=== PATIENT | female | born 1935 | race Caucasian/White ===

== ENCOUNTER 2020-06-11 10:37 | Outpatient (REF) | payer MEDICARE, MEDICAID, SELFPAY ==
[2020-06-11 14:08] LABS: Hematocrit 43.8 % (37-47); Hemoglobin 13.9 g/dl (12.0-16.0); Mean Corpuscular HGB Conc 31.7 g/dl (31.0-35.0); Mean Corpuscular Hemoglobin 28.9 pg (27.0-33.0); Mean Corpuscular Volume 91.1 fL (80-98); Mean Platelet Volume 10.5 fL (9.4-12.3); Platelet Count 246 X10*3/uL (160-400); Red Blood Count 4.81 X10*6/uL (4.20-5.50); Red Cell Distribution Width 13.6 % (11.0-16.0)
[2020-06-11 14:32] LABS: Alanine Aminotransferase 20 U/L (0-31); Albumin Level 4.4 g/dL (3.5-5.0); Alkaline Phosphatase 83 U/L (39-117); Anion Gap 13 (12-20); Aspartate Amino Transferase 20 U/L (5-31); Bilirubin Total 1.2 mg/dL (0.0-1.0); Blood Urea Nitrogen 28 mg/dL (9-16); Calcium 9.4 mg/dL (8.4-10.2); Carbon Dioxide 27 mmol/L (22-29); Chloride 107 mmol/L (96-108); Cholesterol 188 mg/dL; Estimated Glomerular Filt Rate 39; Glucose Fasting 96 mg/dL (60-99); HDL Cholesterol 48 mg/dL; LDL Cholesterol Calculated 119 mg/dl; Potassium 5.2 mmol/l (3.3-5.1); Sodium 142 mmol/L (135-145); Total Protein 7.5 g/dL (6.5-8.0); Triglycerides 105 mg/dL
[2020-06-11 14:38] LABS: Glucose Urine UA NEG (NEG); Leukocyte Esterase Urine NEG (NEG); Nitrite Urine NEG (NEG); Specific Gravity - Urine 1.025 (1.005-1.025); Urine Blood NEG (NEG); Urine Ketones NEG (NEG); Urine Protein 1+ MG/DL (NEG-TRACE)
[2020-06-11 14:43] LABS: Appearance Urine CLEAR; Color Urine YELLOW
[2020-06-11 14:51] LABS: TSH reflex Free T4 3.77 mIU/mL (0.32-4.0)
[2020-06-11 15:09] LABS: Bacteria Urine 1+ /LPF; Mucus Urine 1+ /LPF; RBC Urine 0 /HPF (0); Squamous Epithelial Cell Urine 2+ /LPF; WBC Urine 0-2 /HPF (0-4)
== END 2020-06-11 10:38 | disposition home or self-care (01) ==
LOC: HO.HMGCLDS 10:37
PROVIDERS: PCP Internal Medicine; Visit Provider Internal Medicine
DX: I12.9 Hypertensive chronic kidney disease with stage 1 through stage 4 chronic kidney disease, or unspecified chronic kidney disease (principal); N18.30 Chronic kidney disease, stage 3 unspecified; E78.5 Hyperlipidemia, unspecified
CPT/HCPCS: 36415; 80053; 80061; 81001; 84443; 85027

== ENCOUNTER 2020-06-24 12:13 | Outpatient (REF) | payer MEDICARE, MEDICAID, SELFPAY ==
[2020-06-24 14:21] LABS: Anion Gap 15 (12-20); Blood Urea Nitrogen 26 mg/dL (9-16); Carbon Dioxide 23 mmol/L (22-29); Chloride 108 mmol/L (96-108); Estimated Glomerular Filt Rate 39; Glucose Random 129 mg/dL (60-115); Potassium 4.4 mmol/L (3.3-5.1); Sodium 142 mmol/L (135-145)
== END 2020-06-24 12:14 | disposition home or self-care (01) ==
LOC: HO.HMGCLDS 12:13
PROVIDERS: PCP Internal Medicine; Visit Provider Internal Medicine
DX: I10 Essential (primary) hypertension (principal)
CPT/HCPCS: 36415; 80048

== ENCOUNTER 2020-10-22 08:09 | Outpatient (REF) | payer MEDICARE, MEDICAID, SELFPAY ==
[2020-10-22 12:23] LABS: Alanine Aminotransferase 17 U/L (0-31); Albumin Level 4.4 g/dL (3.5-5.0); Alkaline Phosphatase 89 U/L (39-117); Anion Gap 15 (12-20); Aspartate Amino Transferase 20 U/L (5-31); Bilirubin Total 1.3 mg/dL (0.0-1.0); Blood Urea Nitrogen 24 mg/dL (9-16); Calcium 9.2 mg/dL (8.4-10.2); Carbon Dioxide 22 mmol/L (22-29); Chloride 106 mmol/L (96-108); Cholesterol 175 mg/dL; Estimated Glomerular Filt Rate 43; Glucose Fasting 99 mg/dL (60-99); HDL Cholesterol 49 mg/dL; LDL Cholesterol Calculated 103 mg/dl; Potassium 4.4 mmol/L (3.3-5.1); Sodium 139 mmol/L (135-145); Total Protein 7.8 g/dL (6.5-8.0); Triglycerides 118 mg/dL
[2020-10-22 12:31] LABS: Estimated Average Glucose 126 mg/dL
[2020-10-22 12:36] LABS: Microalbum/Creatinine Ratio Ur 177.2 ug/mg cr
== END 2020-10-22 08:10 | disposition home or self-care (01) ==
LOC: HO.HMGCLDS 08:09
PROVIDERS: PCP Internal Medicine; Visit Provider Internal Medicine
DX: I10 Essential (primary) hypertension (principal); R73.9 Hyperglycemia, unspecified
CPT/HCPCS: 36415; 80053; 80061; 82043; 83036; 84443

== ENCOUNTER 2021-06-26 10:33 | Outpatient (REF) | payer MEDICARE, MEDICAID, SELFPAY ==
[2021-06-26 14:08] LABS: Hematocrit 42.4 % (37.0-47.0); Hemoglobin 13.5 g/dl (12.0-16.0); Mean Corpuscular HGB Conc 31.8 g/dl (31.0-35.0); Mean Corpuscular Hemoglobin 28.8 pg (27.0-33.0); Mean Corpuscular Volume 90.4 fL (80.0-98.0); Platelet Count 233 X10*3/uL (160-400); Red Blood Count 4.69 X10*6/uL (4.20-5.50); Red Cell Distribution Width 13.1 % (11.0-16.0); White Blood Count 7.1 X10*3/uL (4.8-10.8)
[2021-06-26 14:18] LABS: Estimated Average Glucose 128 mg/dL; Hemoglobin A1C 151.8254 umol/L; Hemoglobin A1c % 6.1 %
[2021-06-26 14:34] LABS: B Type Natriuretic Peptide 193 pg/mL (<100); Troponin-I High Sensitivity 13.8 ng/L (<3.5-17.0)
[2021-06-26 14:41] LABS: Alanine Aminotransferase 21 U/L (0-31); Albumin Level 4.2 g/dL (3.5-5.0); Alkaline Phosphatase 92 U/L (39-117); Anion Gap 13 (12-20); Aspartate Amino Transferase 20 U/L (5-31); Bilirubin Total 1.5 mg/dL (0.0-1.0); Blood Urea Nitrogen 25 mg/dL (9-16); Calcium 9.5 mg/dL (8.4-10.2); Carbon Dioxide 28 mmol/L (22-29); Chloride 106 mmol/L (96-108); Cholesterol 196 mg/dL; Estimated Glomerular Filt Rate 37; Glucose Random 106 mg/dL (60-115); HDL Cholesterol 52 mg/dL; LDL Cholesterol Calculated 123 mg/dl; Potassium 4.5 mmol/L (3.3-5.1); Sodium 142 mmol/L (135-145); TSH reflex Free T4 3.86 uIU/mL (0.32-4.0); Total Protein 7.5 g/dL (6.5-8.0); Triglycerides 106 mg/dL
== END 2021-06-26 10:34 | disposition home or self-care (01) ==
LOC: HO.HMGCLDS 10:33
PROVIDERS: Visit Provider Internal Medicine
DX: I12.9 Hypertensive chronic kidney disease with stage 1 through stage 4 chronic kidney disease, or unspecified chronic kidney disease (principal); N18.30 Chronic kidney disease, stage 3 unspecified; R73.9 Hyperglycemia, unspecified; E78.5 Hyperlipidemia, unspecified; J44.9 Chronic obstructive pulmonary disease, unspecified
CPT/HCPCS: 36415; 80053; 80061; 83036; 83880; 84443; 84484; 85027

== ENCOUNTER → 2021-09-18 14:55 | Outpatient (REF) | payer MEDICARE, MEDICAID, SELFPAY ==
--- NOTE | 2021-09-18 15:01 | CA_ITS ---
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 The calculated ejection fraction is 63% by biplane method. - Evidence suggests grade II (moderate) diastolic dysfunction. - The left atrium is severely dilated. - There is mild calcification of the aortic valve. - There is mild mitral valve regurgitation. - There is mild tricuspid valve regurgitation. - Mild to moderate pulmonary hypertension is present. Findings Left Ventricle Normal left ventricular cavity size. There is mildly increased left ventricular wall thickness. The left ventricular systolic function is normal. The calculated ejection fraction is 63% by biplane method. There is no evidence of regional wall motion abnormalities. E/E prime ratio is >15, consistent with elevated filling pressures. Evidence suggests grade II (moderate) diastolic dysfunction. Right Ventricle Normal right ventricular cavity size and systolic function. Atria The left atrium is severely dilated. The right atrium is normal in size. Aortic Valve There is mild calcification of the aortic valve. There is no aortic valve stenosis. There is no aortic valve regurgitation. Mitral Valve The mitral valve appears normal. There is mild mitral valve regurgitation. There is no mitral valve stenosis. Pulmonic Valve The pulmonic valve is likely normal. Tricuspid Valve Normal tricuspid valve structure. There is mild tricuspid valve regurgitation. The right ventricular systolic pressure is 50 mmHg. Mild to moderate pulmonary hypertension is present. Great Vessels The aortic annulus, sinuses of valsalva, sino tubular ridge, and asc aorta are normal in size. Venous The inferior vena cava is normal in size and collapses greater than 50% with inspiration. Pericardium/Pleural There is no evidence of pericardial effusion. Prior Study Comparison No prior study available for comparison. Measurements 2D Linear Measurements IVSd: 1.19 0.6-0.9/0.6-1.0 cm LVIDd: 5.17 3.9-5.3/4.2-5.9 cm LVIDd Index: 2.79 2.4-3.2/2.2-3.1 cm/m2 LVIDs: 3.15 2.0-3.6 cm LVPWd: 1.14 0.7-1.1 cm LA Diam: 4.60 2.7-3.8/3.0-4.0 cm LAIDs Index: 2.49 1.5-2.3 cm/m2 LV Mass: 295.03 67-162/88-224 g LV Mass Index: 159.48 43-95/49-115 g/m2 LVOT Diam: 2.00 3.0+(-)1.3 cm 2D Systolic Function EF 4C: 68.60 >55% EF 2C: 56.00 >55% EF BiP: 62.50 >55% Mitral Valve MV Pk E: 0.99 MV PK A: 0.77 MV Decel Time: 257.00 E/A: 1.30 E'Lateral: 6.42 E'Medial: 5.22 E/E' Med: 18.90 E/E' Lat: 15.30 PHT: 75.00 MVA PHT: 2.93 Decel [place]: 3.83 Aortic Valve AoV Pk Curtis: 1.45 AoV Mn Curtis: 0.99 AoV VTI: 0.33 AoV Pk Grad: 8.00 Aov Mn Grad: 5.00 JENNIFER Cont.VTI: 2.11 LVOT LVOT Pk Curtis: 0.95 LVOT Mn Curtis: 0.68 LVOT VTI: 0.22 LVOT Pk Grad: 4.00 LVOT Mn Grad: 2.00 LVOT Diam: 2.00 LVOT Area: 3.14 Diastolic Function MV Pk E: 0.99 MV Pk A: 0.77 E/A: 1.30 E'Medial: 5.22 E/E' Med: 18.90 E' Laterial: 6.42 E/E' Lat: 15.30 Right Ventricle TAPSE (mm): 23.50 TVS' Curtis: 12.60 Tricuspid Valve TR Pk Curtis: 3.43 TR Pk Grad: 47.00 RA Press: 3.00 RVSP: 50.00 Great Vessels Aorta Sinus of Valsalva: 3.17 2.0-3.[address] [place]: 3.08 1.7-3.4 cm Ao Asc: 3.50 2.1-3.4 cm Ao Arch: 2.60 Updated in Other Vendor System with Status of Final Ezio Weaver MD electronically signed on 09/19/2021 4:25:19 PM with status of Final
== END ==
LOC: HO.CARD 14:55
PROVIDERS: PCP Internal Medicine; Visit Provider Internal Medicine
DX: I50.9 Heart failure, unspecified (principal)
CPT/HCPCS: 93306

== ENCOUNTER 2021-11-27 14:51 | Outpatient (REF) | payer MEDICARE, MEDICAID, SELFPAY ==
[2021-11-27 16:39] LABS: MANUAL DIFF FLAG NO
[2021-11-27 16:44] LABS: Basophils Percent Auto 0.4 % (0-2); Eosinophils Absolute Auto 0.3 X10*3/uL (0.0-0.4); Hematocrit 39.4 % (37.0-47.0); Hemoglobin 12.6 g/dl (12.0-16.0); Imm Gran Abs Auto 0.02 X10*3/uL (0.00-0.03); Imm Gran Pct Auto 0.3 % (0.0-0.4); Lymphocytes Absolute Auto 1.6 X10*3/uL (1.2-4.9); Lymphocytes Percent Auto 20.8 % (20-40); Mean Corpuscular Hemoglobin 28.2 pg (27.0-33.0); Mean Corpuscular Volume 88.1 fL (80.0-98.0); Mean Platelet Volume 10.6 fL (9.4-12.3); Monocytes Absolute Auto 0.6 X10*3/uL (0.1-1.2); Monocytes Percent Auto 8.6 % (2-11); Neutrophils Absolute Auto 4.9 x10*3/uL (2.0-8.3); Neutrophils Percent Auto 65.9 % (45-73); Platelet Count 245 X10*3/uL (160-400); Red Blood Count 4.47 X10*6/uL (4.20-5.50); Red Cell Distribution Width 13.7 % (11.0-16.0); White Blood Count 7.4 X10*3/uL (4.8-10.8)
[2021-11-27 16:58] LABS: Alanine Aminotransferase 14 U/L (0-31); Albumin Level 4.1 g/dL (3.5-5.0); Alkaline Phosphatase 88 U/L (39-117); Anion Gap 12 (12-20); Aspartate Amino Transferase 21 U/L (5-31); Bilirubin Total 0.8 mg/dL (0.0-1.0); Blood Urea Nitrogen 22 mg/dL (9-16); Calcium 8.8 mg/dL (8.4-10.2); Carbon Dioxide 26 mmol/L (22-29); Chloride 107 mmol/L (96-108); Estimated Glomerular Filt Rate 45; Glucose Random 92 mg/dL (60-115); Potassium 4.3 mmol/L (3.3-5.1); Sodium 141 mmol/L (135-145); Total Protein 7.3 g/dL (6.5-8.0)
[2021-11-27 17:20] LABS: TSH reflex Free T4 3.55 uIU/mL (0.32-4.0)
[2021-11-27 17:22] LABS: B Type Natriuretic Peptide 340 pg/mL (<100)
== END 2021-11-27 14:52 | disposition home or self-care (01) ==
LOC: HO.HMGCLDS 14:51
PROVIDERS: PCP Internal Medicine; Visit Provider Internal Medicine
DX: I13.0 Hypertensive heart and chronic kidney disease with heart failure and stage 1 through stage 4 chronic kidney disease, or unspecified chronic kidney disease (principal); N18.30 Chronic kidney disease, stage 3 unspecified; I50.9 Heart failure, unspecified; R73.9 Hyperglycemia, unspecified
CPT/HCPCS: 36415; 80053; 83880; 84443; 85025

== ENCOUNTER 2022-08-14 14:38 | Outpatient (REF) | payer MEDICARE, MEDICAID, SELFPAY ==
[2022-08-14 16:51] LABS: MANUAL DIFF FLAG NO
[2022-08-14 16:52] LABS: Basophils Percent Auto 0.2 % (0-2); Eosinophils Absolute Auto 0.2 X10*3/uL (0.0-0.4); Hematocrit 36.6 % (37.0-47.0); Hemoglobin 11.6 g/dl (12.0-16.0); Imm Gran Abs Auto 0.02 X10*3/uL (0.00-0.03); Imm Gran Pct Auto 0.2 % (0.0-0.4); Lymphocytes Absolute Auto 1.2 X10*3/uL (1.2-4.9); Lymphocytes Percent Auto 14.6 % (20-40); Mean Corpuscular HGB Conc 31.7 g/dl (31.0-35.0); Mean Corpuscular Hemoglobin 27.8 pg (27.0-33.0); Mean Corpuscular Volume 87.8 fL (80.0-98.0); Mean Platelet Volume 10.5 fL (9.4-12.3); Monocytes Absolute Auto 0.7 X10*3/uL (0.1-1.2); Monocytes Percent Auto 8.2 % (2-11); Neutrophils Absolute Auto 6.1 x10*3/uL (2.0-8.3); Neutrophils Percent Auto 74.8 % (45-73); Platelet Count 305 X10*3/uL (160-400); Red Blood Count 4.17 X10*6/uL (4.20-5.50); Red Cell Distribution Width 13.8 % (11.0-16.0); White Blood Count 8.1 X10*3/uL (4.8-10.8)
[2022-08-14 18:25] LABS: B Type Natriuretic Peptide 375 pg/mL (<100)
[2022-08-14 18:26] LABS: Alanine Aminotransferase 14 U/L (0-31); Albumin Level 4.1 g/dL (3.5-5.0); Alkaline Phosphatase 74 U/L (39-117); Anion Gap 16 (12-20); Aspartate Amino Transferase 17 U/L (5-31); Bilirubin Total 1.1 mg/dL (0.0-1.0); Blood Urea Nitrogen 29 mg/dL (9-16); Calcium 9.2 mg/dL (8.4-10.2); Carbon Dioxide 26 mmol/L (22-29); Chloride 104 mmol/L (96-108); Estimated Glomerular Filt Rate 43; Glucose Random 104 mg/dL (60-115); Potassium 4.3 mmol/L (3.3-5.1); Sodium 142 mmol/L (135-145); Total Protein 7.1 g/dL (6.5-8.0)
== END 2022-08-14 14:39 | disposition home or self-care (01) ==
LOC: HO.HMGCLDS 14:38
PROVIDERS: PCP Internal Medicine; Visit Provider Internal Medicine
DX: I50.9 Heart failure, unspecified (principal); J44.9 Chronic obstructive pulmonary disease, unspecified; N18.30 Chronic kidney disease, stage 3 unspecified; R73.9 Hyperglycemia, unspecified
CPT/HCPCS: 36415; 80053; 83880; 85025

== ENCOUNTER 2022-10-15 15:12 | Outpatient (REF) | payer MEDICARE, MEDICAID, SELFPAY ==
--- NOTE | ~2022-10-15 | XR_ITS ---
EXAMINATION: XR CHEST CLINICAL INFORMATION: Pleural effusion COMPARISON: Previous chest x-ray August 2018 TECHNIQUE: 2 views of the chest were obtained. FINDINGS: The cardiac and mediastinal contours are stable. There are multiple calcifications that project over both upper lungs. Some of these project outside the chest in the right axilla and bilateral lower neck. This appears unchanged from previous exam. There is linear scarring or subsegmental atelectasis in the left midlung. There are increased markings in the right perihilar region questionable for infiltrate. There is no significant pleural effusion. There is a slight blunting of the posterior costophrenic angles and thickening of the fissures questionable for small pleural effusions. There is no pneumothorax. There are degenerative changes of the spine and shoulders. There is curvature of the lower thoracic spine to the left. XR/XR chest 2V IMPRESSION: No significant pleural effusion. There may be small bilateral pleural effusions. Question infiltrate in the right perihilar region. Stable appearance to extensive calcifications projecting over the upper lungs, some of which appear to be in the soft tissues.
[2022-10-15 16:40] LABS: MANUAL DIFF FLAG NO
[2022-10-15 16:44] LABS: Basophils Percent Auto 0.3 % (0-2); Eosinophils Absolute Auto 0.2 X10*3/uL (0.0-0.4); Hematocrit 33.1 % (37.0-47.0); Hemoglobin 10.2 g/dl (12.0-16.0); Imm Gran Abs Auto 0.02 X10*3/uL (0.00-0.03); Imm Gran Pct Auto 0.2 % (0.0-0.4); Lymphocytes Percent Auto 10.5 % (20-40); Mean Corpuscular HGB Conc 30.8 g/dl (31.0-35.0); Mean Corpuscular Hemoglobin 26.3 pg (27.0-33.0); Mean Corpuscular Volume 85.3 fL (80.0-98.0); Mean Platelet Volume 10.6 fL (9.4-12.3); Monocytes Absolute Auto 0.8 X10*3/uL (0.1-1.2); Monocytes Percent Auto 8.4 % (2-11); Neutrophils Absolute Auto 7.2 x10*3/uL (2.0-8.3); Neutrophils Percent Auto 78.6 % (45-73); Platelet Count 234 X10*3/uL (160-400); Red Blood Count 3.88 X10*6/uL (4.20-5.50); Red Cell Distribution Width 13.6 % (11.0-16.0); White Blood Count 9.1 X10*3/uL (4.8-10.8)
[2022-10-15 17:48] LABS: B Type Natriuretic Peptide 425 pg/mL (<100)
[2022-10-15 17:58] LABS: Alanine Aminotransferase 10 U/L (0-31); Albumin Level 4.2 g/dL (3.5-5.0); Alkaline Phosphatase 74 U/L (39-117); Anion Gap 16 (12-20); Aspartate Amino Transferase 15 U/L (5-31); Bilirubin Total 1.9 mg/dL (0.0-1.0); Blood Urea Nitrogen 38 mg/dL (9-16); Calcium 8.8 mg/dL (8.4-10.2); Carbon Dioxide 30 mmol/L (22-29); Chloride 102 mmol/L (96-108); Estimated Glomerular Filt Rate 33; Glucose Random 105 mg/dL (60-115); Potassium 3.7 mmol/L (3.3-5.1); Sodium 144 mmol/L (135-145); Total Protein 7.3 g/dL (6.5-8.0)
[2022-10-15 18:16] LABS: TSH reflex Free T4 3.51 uIU/mL (0.32-4.0)
== END 2022-10-15 15:13 | disposition home or self-care (01) ==
LOC: HO.HMGCX 15:12
PROVIDERS: PCP Internal Medicine; Visit Provider Internal Medicine
DX: I13.0 Hypertensive heart and chronic kidney disease with heart failure and stage 1 through stage 4 chronic kidney disease, or unspecified chronic kidney disease (principal); N18.30 Chronic kidney disease, stage 3 unspecified; I50.9 Heart failure, unspecified; J44.9 Chronic obstructive pulmonary disease, unspecified
CPT/HCPCS: 36415; 71046; 80053; 83880; 84443; 85025

== ENCOUNTER 2022-10-20 17:00 | Outpatient (REF) | payer MEDICARE, MEDICAID, SELFPAY ==
[2022-10-20 17:16] LABS: MANUAL DIFF FLAG NO
[2022-10-20 17:37] LABS: Basophils Percent Auto 0.3 % (0-2); Eosinophils Absolute Auto 0.2 X10*3/uL (0.0-0.4); Eosinophils Percent Auto 2.4 % (0-4); Hematocrit 32.5 % (37.0-47.0); Hemoglobin 9.8 g/dl (12.0-16.0); Imm Gran Abs Auto 0.02 X10*3/uL (0.00-0.03); Imm Gran Pct Auto 0.3 % (0.0-0.4); Lymphocytes Absolute Auto 0.9 X10*3/uL (1.2-4.9); Lymphocytes Percent Auto 15.1 % (20-40); Mean Corpuscular HGB Conc 30.2 g/dl (31.0-35.0); Mean Corpuscular Hemoglobin 25.7 pg (27.0-33.0); Mean Corpuscular Volume 85.1 fL (80.0-98.0); Mean Platelet Volume 10.1 fL (9.4-12.3); Monocytes Absolute Auto 0.6 X10*3/uL (0.1-1.2); Monocytes Percent Auto 9.6 % (2-11); Neutrophils Absolute Auto 4.5 x10*3/uL (2.0-8.3); Neutrophils Percent Auto 72.3 % (45-73); Platelet Count 232 X10*3/uL (160-400); Red Blood Count 3.82 X10*6/uL (4.20-5.50); Red Cell Distribution Width 13.8 % (11.0-16.0); White Blood Count 6.2 X10*3/uL (4.8-10.8)
[2022-10-20 18:06] LABS: B Type Natriuretic Peptide 499 pg/mL (<100)
[2022-10-20 18:33] LABS: Alanine Aminotransferase 13 U/L (0-31); Albumin Level 4.1 g/dL (3.5-5.0); Alkaline Phosphatase 69 U/L (39-117); Anion Gap 14 (12-20); Aspartate Amino Transferase 14 U/L (5-31); Bilirubin Total 1.7 mg/dL (0.0-1.0); Blood Urea Nitrogen 40 mg/dL (9-16); Carbon Dioxide 30 mmol/L (22-29); Chloride 101 mmol/L (96-108); Estimated Glomerular Filt Rate 35; Glucose Random 99 mg/dL (60-115); Iron 26 mcg/dL (30-160); Percent Iron Saturation 7 % (15-50); Potassium 3.7 mmol/L (3.3-5.1); Sodium 141 mmol/L (135-145); Total Iron Binding Capacity 387 mcg/dL (228-428); Unsaturated Iron Binding 361 ug/dL
[2022-10-20 19:04] LABS: Folate 13.8 ng/mL (> or = 4.0); TSH reflex Free T4 3.63 uIU/mL (0.32-4.0); Vitamin B12 383 pg/mL (200-900)
== END 2022-10-20 17:01 | disposition home or self-care (01) ==
LOC: HO.LAB 17:00
PROVIDERS: PCP Internal Medicine; Visit Provider Internal Medicine
DX: J44.9 Chronic obstructive pulmonary disease, unspecified (principal); I13.0 Hypertensive heart and chronic kidney disease with heart failure and stage 1 through stage 4 chronic kidney disease, or unspecified chronic kidney disease; I50.9 Heart failure, unspecified; N18.30 Chronic kidney disease, stage 3 unspecified; D63.1 Anemia in chronic kidney disease
CPT/HCPCS: 36415; 80053; 82607; 82746; 83540; 83880; 84443; 85025

== ENCOUNTER 2023-01-07 11:55 | Outpatient (AMB) | payer MEDICARE, MEDICAID, SELFPAY ==
--- NOTE | 2023-01-07 11:58 | A.OFFPC_ITS ---
Vital Signs 01/07/23 11:59 Height 5 ft 7 in Weight 176 lb BMI 27.6 BP 126/64 Blood Pressure Location Rt brachial Position Sitting Pulse 83 Pulse Source Pulse Oximeter Pulse Oximetry (%) 90 L Oxygen Delivery Method Nasal Cannula Intake Visit Reasons: Follow up complex Intake Note: Pt is here today for a follow up visit. Pt states that she has been having cough and wheezing. Allergies lisinopril Adverse Reaction (Severe, Verified 01/07/23 12:05) hyperkalemia Medication List - Last Reconciled 01/07/23 by Stormy Topete MD amlodipine 5 mg PO DAILY apixaban (Eliquis) 5 mg PO BID aspirin 81 mg PO DAILY budesonide-formoterol 80-4.5 mcg/actuation (Symbicort) 2 puffs inhalation BID carvedilol 25 mg PO BID doxycycline hyclate 100 mg PO BID empagliflozin (Jardiance) 10 mg PO DAILY famotidine 20 mg PO DAILY furosemide 40 mg PO BID hydralazine 25 mg PO BID levothyroxine 88 mcg PO DAILY Oxygen Home Use PORTABLE OXYGEN pravastatin 20 mg PO DAILY Tobacco use date assessed: 01/07/23 Dental Screening Dental Screen Date: 01/07/23 Did you have a dental visit in the last 12 months?: Yes Did you have a dental problem in the last 6 months where you did not have access to dental care?: No Was dental information given to patient?: Patient has dentist HPI Follow up complex HPI Details Patient presents for the follow-up of HF with preserved ejection fraction, COPD, chronic kidney disease stage 3, paroxysmal AFib. Patient reports congestion and upper chest tightness in the morning improves changing position to a sitting. Patient denies cough sputum production PND orthopnea. Patient has been taking 60 mg of furosemide occasionally increasing to 80 mg for daily weight increase more than 2 lb. [facility] Medical History Annual physical exam Chest pain CHF (congestive heart failure) CKD (chronic kidney disease), stage III COPD (chronic obstructive pulmonary disease) HTN (hypertension) Hyperglycemia Hyperlipidemia Hyperparathyroidism Hypothyroidism Impacted cerumen of both ears Lumbar radiculopathy Pancreatic cyst Renal mass Surgical History H/O colonoscopy No pertinent past surgical history Family History Father Unknown family medical history Mother Unknown family medical history Social History Housing: House Alcohol intake: never Patient Tobacco Use Status: Never used Tobacco e-Cigarette/Vaping Use: Never Used Current occupational status: retired Cognitive needs: No Hearing needs: No Vision needs: No Questionnaire Thrive Questionnaire Date Thrive assessed: 06/05/22 EDDIE-7 AMB Questionnaire EDDIE-7 Date EDDIE - 7 assessed: 06/05/22 Source: Developed by Drs. Madhu Monroy, Shyla Hill, Abner Vieyra and colleagues, with an educational ryan from [employer]. Review of Systems Const All systems reviewed & are unremarkable except as noted in HPI and below Reports no additional complaints Eyes Reports no additional complaints ENT Reports no additional complaints Card Reports no additional complaints Resp Reports no additional complaints Physical exam (Primary Care) Vital Signs: Last Vital Signs Pulse 83 01/07/23 11:59 BP 126/64 01/07/23 11:59 Pulse Ox 90 L 01/07/23 11:59 Oxygen Delivery Method Nasal Cannula 01/07/23 11:59 BMI result Body Mass Index 27.6 Tobacco/Smoking Status: Tobacco use Status Tobacco use date assessed 01/07/23 01/07/23 12:07 Patient Tobacco Use Status Never used Tobacco 01/07/23 12:07 e-Cigarette/Vaping Use Never Used 01/07/23 12:07 Thrive Assessment: Date of Thrive Assessment Date Thrive assessed 06/05/22 01/07/23 12:07 Const General: no acute distress Neck Neck: Yes supple Resp Effort & Inspection: able to speak in complete sentences Auscultation: crackles bilateral and diminished lung sounds Cardio Rhythm: regular rhythm Heart sounds: S1 normal heart sound present and S2 normal heart sound present Extrem Other: 3+ pitting edema bilaterally Assessment and Plan Assessment & Plan (1) Hypoxia: Code(s): R09.02 - Hypoxemia Plan: Continue supplemental O2 to keep O2 sat above 90 (2) CHF (congestive heart failure): Comment: Echo 05/14 [facility] nl EF, nl valves, repeat ECHO 10/13 moderate concentric left ventricle hypertrophy, right ventricular volume overload severe biatrial enlargement, mild to moderate MR, severe pulmonary hypertension Code(s): I50.9 - Heart failure, unspecified Plan: Check labs including BNP, increase furosemide to 40 mg twice a day continue Coreg, Jardiance and hydralazine. Decrease amlodipine to 5 mg because of borderline low blood pressure and lower extremity swelling. Patient will continue to monitor her weight daily and adding spironolactone will be considered if patient persists to be fluid overload (3) COPD (chronic obstructive pulmonary disease): Code(s): J44.9 - Chronic obstructive pulmonary disease, unspecified Plan: Restart Symbicort twice a day (4) CKD (chronic kidney disease), stage III: Comment: renal scarring of left kidney ? old TB, right 2 simple cysts US 3.1 cm and 2.2 cm 03/2019,MR 01/13 - R unchanged 3.2 cm, ill defined renal mass, f/u with urology at [facility] Code(s): N18.30 - Chronic kidney disease, stage 3 unspecified Plan: Monitor renal function Orders: Orders B Type Natriuretic Peptide Today D64.9 - Anemia, unspecified, I50.9 - Heart failure, unspecified, J44.9 - Chronic obstructive pulmonary disease, unspecified, N18.30 - Chronic kidney disease, stage 3 unspecified, R09.02 - Hypoxemia Comprehensive Met. Panel Today D64.9 - Anemia, unspecified, I50.9 - Heart failure, unspecified, J44.9 - Chronic obstructive pulmonary disease, unspecified, N18.30 - Chronic kidney disease, stage 3 unspecified, R09.02 - Hypoxemia Complete Blood Count Auto Diff Today D64.9 - Anemia, unspecified, I50.9 - Heart failure, unspecified, J44.9 - Chronic obstructive pulmonary disease, unspecified, N18.30 - Chronic kidney disease, stage 3 unspecified, R09.02 - Hypoxemia Hemoglobin A1c Today D64.9 - Anemia, unspecified, I50.9 - Heart failure, unspecified, J44.9 - Chronic obstructive pulmonary disease, unspecified, N18.30 - Chronic kidney disease, stage 3 unspecified, R09.02 - Hypoxemia Medications: New amlodipine 5 mg PO DAILY 90 tabs 0RF furosemide 40 mg PO BID 180 tabs 1RF Discontinued amlodipine Discontinued Reason: Doctor's Order 10 mg PO DAILY 90 tabs 3RF doxycycline hyclate Discontinued Reason: Doctor's Order 100 mg PO BID 14 tabs 0RF Coding Level of Care Code Est Pt Level 4 (41616) Diagnoses Hypoxia R09.02 CHF (congestive heart failure) I50.9 COPD (chronic obstructive pulmonary disease) J44.9 CKD (chronic kidney disease), stage III N18.30
[2023-01-07 11:59] VITALS: BP 126/64; PULSE 83; O2SAT 90; BMI 27.6
== END 2023-01-07 13:14 | disposition home or self-care (01) ==
LOC: HO.HMGC 11:55
PROVIDERS: PCP Internal Medicine; Visit Provider Internal Medicine
DX: R09.02 Hypoxemia (principal); I50.9 Heart failure, unspecified; J44.9 Chronic obstructive pulmonary disease, unspecified; N18.30 Chronic kidney disease, stage 3 unspecified
CPT/HCPCS: 99214

== ENCOUNTER 2023-01-07 12:38 | Outpatient (REF) | payer MEDICARE, MEDICAID, SELFPAY ==
[2023-01-07 16:18] LABS: MANUAL DIFF FLAG NO
[2023-01-07 16:29] LABS: Basophils Percent Auto 0.3 % (0-2); Eosinophils Absolute Auto 0.1 X10*3/uL (0.0-0.4); Eosinophils Percent Auto 1.9 % (0-4); Hematocrit 39.3 % (37.0-47.0); Hemoglobin 12.3 g/dl (12.0-16.0); Imm Gran Abs Auto 0.02 X10*3/uL (0.00-0.03); Imm Gran Pct Auto 0.3 % (0.0-0.4); Lymphocytes Absolute Auto 0.9 X10*3/uL (1.2-4.9); Lymphocytes Percent Auto 11.8 % (20-40); Mean Corpuscular HGB Conc 31.3 g/dl (31.0-35.0); Mean Corpuscular Volume 89.3 fL (80.0-98.0); Mean Platelet Volume 10.6 fL (9.4-12.3); Monocytes Absolute Auto 0.6 X10*3/uL (0.1-1.2); Monocytes Percent Auto 8.5 % (2-11); Neutrophils Absolute Auto 5.6 x10*3/uL (2.0-8.3); Neutrophils Percent Auto 77.2 % (45-73); Platelet Count 207 X10*3/uL (160-400); Red Cell Distribution Width 15.8 % (11.0-16.0); White Blood Count 7.3 X10*3/uL (4.8-10.8)
[2023-01-07 16:32] LABS: Estimated Average Glucose 123 mg/dL; Hemoglobin A1c % 5.9 %
[2023-01-07 16:41] LABS: Alanine Aminotransferase 14 U/L (0-31); Albumin Level 4.2 g/dL (3.5-5.0); Alkaline Phosphatase 72 U/L (39-117); Anion Gap 12 (12-20); Aspartate Amino Transferase 18 U/L (5-31); Bilirubin Total 1.9 mg/dL (0.0-1.0); Blood Urea Nitrogen 27 mg/dL (9-16); Calcium 9.1 mg/dL (8.4-10.2); Carbon Dioxide 33 mmol/L (22-29); Chloride 100 mmol/L (96-108); Estimated Glomerular Filt Rate 39; Glucose Random 93 mg/dL (60-115); Potassium 3.8 mmol/L (3.3-5.1); Sodium 141 mmol/L (135-145); Total Protein 7.6 g/dL (6.5-8.0)
[2023-01-07 16:45] LABS: B Type Natriuretic Peptide 349 pg/mL (<100)
== END 2023-01-07 12:39 | disposition home or self-care (01) ==
LOC: HO.HMGCLDS 12:38
PROVIDERS: PCP Internal Medicine; Visit Provider Internal Medicine
DX: D64.9 Anemia, unspecified (principal); I50.9 Heart failure, unspecified; N18.30 Chronic kidney disease, stage 3 unspecified; J44.9 Chronic obstructive pulmonary disease, unspecified; R09.02 Hypoxemia
CPT/HCPCS: 36415; 80053; 83036; 83880; 85025

== ENCOUNTER 2023-02-08 14:36 | Outpatient (AMB) | payer MEDICARE, MEDICAID, SELFPAY ==
--- NOTE | 2023-02-08 14:54 | MHC.OFFWIV ---
Intake Vital Signs 02/08/23 14:55 Height 5 ft 7 in Weight 174 lb 2 oz BMI 27.3 BP 130/80 Blood Pressure Location Rt brachial Position Sitting Pulse 72 Pulse Source Pulse Oximeter Temp 98.1 F Temp Source Temporal Artery Scan Pulse Oximetry (%) 94 Intake Visit Reasons: Est/ right pinky finger swelling Intake Note: pt is here for c/o right pinky swelling Patient Tobacco Use Status: Never used Tobacco Allergies lisinopril Adverse Reaction (Severe, Verified 02/08/23 15:35) hyperkalemia Medication List - Last Reconciled 02/08/23 by Woodrow Law MD amlodipine 5 mg PO DAILY apixaban (Eliquis) 5 mg PO BID aspirin 81 mg PO DAILY budesonide-formoterol 80-4.5 mcg/actuation (Symbicort) 2 puffs inhalation BID carvedilol 25 mg PO BID empagliflozin (Jardiance) 10 mg PO DAILY famotidine 20 mg PO DAILY furosemide 40 mg PO BID hydralazine 25 mg PO BID levothyroxine 88 mcg PO DAILY Oxygen Home Use PORTABLE OXYGEN pravastatin 20 mg PO DAILY HPI Est/ right pinky finger swelling HPI Details 87-year-old female presents to the office for a sick visit. Her daughter is translating. Patient is complaining of a painful and swollen pinky finger on her right hand. She has history of extensive osteoarthritis in the hand. She noticed discomfort in the finger which has worsened since. Does not recall any fall or injury. [facility] Medical History Annual physical exam Chest pain CHF (congestive heart failure) CKD (chronic kidney disease), stage III COPD (chronic obstructive pulmonary disease) HTN (hypertension) Hyperglycemia Hyperlipidemia Hyperparathyroidism Hypothyroidism Impacted cerumen of both ears Lumbar radiculopathy Pancreatic cyst Renal mass Surgical History H/O colonoscopy No pertinent past surgical history Family History Father Unknown family medical history Mother Unknown family medical history Social History Housing: House Alcohol intake: never Patient Tobacco Use Status: Never used Tobacco e-Cigarette/Vaping Use: Never Used Current occupational status: retired Cognitive needs: No Hearing needs: No Vision needs: No Physical Exam Vital Signs: Last Vital Signs Temp 98.1 F 02/08/23 14:55 Pulse 72 02/08/23 14:55 BP 130/80 02/08/23 14:55 Pulse Ox 94 02/08/23 14:55 BMI result Body Mass Index 27.3 Extrem Other: Right hand: Extensive osteoarthritis changes in the hand including Heberden's nodes. Fifth digit: Erythematous and swollen. Pain on flexion. Assessment & Plan Assessment & Plan (1) Osteoarthritis of right hand: Code(s): M19.041 - Primary osteoarthritis, right hand Qualifiers: Osteoarthritis type: primary Qualified Code(s): M19.041 - Primary osteoarthritis, right hand Plan: X-ray images personally reviewed by me. No fractures seen. Antibiotics called in. Patient was advised to use [id number] anti-inflammatories. Orders: Orders XR hand RT min 3V Today M19.041 - Primary osteoarthritis, right hand Coding Level of Care Code Est Pt Level 4 (22424) Diagnoses Primary osteoarthritis of right hand M19.041 Osteoarthritis type: primary
[2023-02-08 14:55] VITALS: BP 130/80; PULSE 72; TEMP 36.7; O2SAT 94; BMI 27.3
== END 2023-02-08 15:55 | disposition home or self-care (01) ==
PROVIDERS: PCP Internal Medicine; Visit Provider Internal Medicine
DX: M19.041 Primary osteoarthritis, right hand (principal)
CPT/HCPCS: 99214

== ENCOUNTER 2023-02-08 15:32 | Outpatient (REF) | payer MEDICARE, MEDICAID, SELFPAY ==
--- NOTE | ~2023-02-08 | XR_ITS ---
EXAMINATION: XR HAND, RIGHT CLINICAL INFORMATION: Primary osteoarthritis right hand. COMPARISON: None available. TECHNIQUE: PA, lateral, and oblique views of the right hand. FINDINGS: There is flexion deformities with periarticular spurring and loss of joint space DIP joints second through fifth digits consistent osteoarthritis. Similar findings are seen in the PIP joint first digit and first carpometacarpal joint space. There is mild diffuse osteopenia. No visible acute fracture, dislocation or subluxation seen. XR/XR hand RT min 3V IMPRESSION: Severe degenerative osteoarthritic changes right hand with flexion deformities DIP joints second through fifth digits.
== END 2023-02-08 15:33 | disposition home or self-care (01) ==
LOC: HO.HMGCLDS 15:32
PROVIDERS: PCP Internal Medicine; Visit Provider Internal Medicine
DX: M19.041 Primary osteoarthritis, right hand (principal)
CPT/HCPCS: 73130

== ENCOUNTER 2023-02-17 11:54 | Outpatient (AMB) | payer MEDICARE, MEDICAID, SELFPAY ==
--- NOTE | 2023-02-17 12:00 | A.OFFPC_ITS ---
Vital Signs 02/17/23 12:02 Height 5 ft 7 in Weight 177 lb BMI 27.7 BP 110/66 Blood Pressure Location Lt brachial Position Sitting Pulse 84 Pulse Source Pulse Oximeter Pulse Oximetry (%) 92 Oxygen Delivery Method Nasal Cannula Intake Visit Reasons: Follow up Intake Note: Pt is here today for a follow up visit. Allergies lisinopril Adverse Reaction (Severe, Verified 02/17/23 12:05) hyperkalemia Medication List - Last Reconciled 02/17/23 by Stormy Topete MD amlodipine 10 mg PO DAILY apixaban (Eliquis) 5 mg PO BID aspirin 81 mg PO DAILY budesonide-formoterol 80-4.5 mcg/actuation (Symbicort) 2 puffs inhalation BID carvedilol 25 mg PO BID empagliflozin (Jardiance) 10 mg PO DAILY famotidine 20 mg PO DAILY furosemide 40 mg PO BID hydralazine 25 mg PO BID levothyroxine 88 mcg PO DAILY Oxygen Home Use PORTABLE OXYGEN pravastatin 20 mg PO DAILY Tobacco use date assessed: 01/07/23 HPI Follow up HPI Details pt presents for f/u CHF, hypothyroid, HTN, CKD 3, stable on current medications. Patient had follow-up MRI of renal mass which has been unchanged and she will follow-up with urologist in 6 months. Cardiac MRI showed left ventricular ejection fraction 50% no significant segmental wall motion abnormalities and normal thickness of left ventricle. She has a follow-up appointment with transition social worker at [facility]. [facility] Medical History (Updated 02/17/23 @ 12:55 by Stormy Topete MD) CHF (congestive heart failure) Impacted cerumen of both ears Annual physical exam Hyperglycemia Chest pain Renal mass Hypothyroidism Pancreatic cyst Lumbar radiculopathy Hyperparathyroidism CKD (chronic kidney disease), stage III COPD (chronic obstructive pulmonary disease) Hyperlipidemia HTN (hypertension) Surgical History H/O colonoscopy No pertinent past surgical history Family History Father Unknown family medical history Mother Unknown family medical history Social History Housing: House Alcohol intake: never Patient Tobacco Use Status: Never used Tobacco e-Cigarette/Vaping Use: Never Used Current occupational status: retired Cognitive needs: No Hearing needs: No Vision needs: No Questionnaire Thrive Questionnaire Date Thrive assessed: 06/05/22 EDDIE-7 AMB Questionnaire EDDIE-7 Date EDDIE - 7 assessed: 06/05/22 Source: Developed by Drs. Madhu Monroy, Shyla Hill, Abner Vieyra and colleagues, with an educational ryan from [employer]. Review of Systems Const All systems reviewed & are unremarkable except as noted in HPI and below Reports no additional complaints Eyes Reports no additional complaints ENT Reports no additional complaints Card Reports no additional complaints Resp Reports no additional complaints GI Reports no additional complaints Reports no additional complaints Physical exam (Primary Care) Vital Signs: Last Vital Signs Pulse 84 02/17/23 12:02 BP 110/66 02/17/23 12:02 Pulse Ox 92 02/17/23 12:02 Oxygen Delivery Method Nasal Cannula 02/17/23 12:02 BMI result Body Mass Index 27.7 Tobacco/Smoking Status: Tobacco use Status Tobacco use date assessed 01/07/23 02/17/23 12:04 Patient Tobacco Use Status Never used Tobacco 02/17/23 12:04 e-Cigarette/Vaping Use Never Used 02/17/23 12:04 Thrive Assessment: Date of Thrive Assessment Date Thrive assessed 06/05/22 02/17/23 12:04 Const General: no acute distress HENMT Head: Yes normal to inspection Neck Neck: Yes supple Resp Effort & Inspection: normal respiratory effort Auscultation: diminished lung sounds Cardio Rhythm: regular rhythm Heart sounds: S1 normal heart sound present and S2 normal heart sound present GI Inspection: Yes normal to inspection Palpation (GI): Soft to palpation Percussion: Yes normal to percussion Auscultation: normal bowel sounds Extrem Other: 1+ pitting edema bilaterally Assessment and Plan Assessment & Plan (1) Pleural effusion: Code(s): J90 - Pleural effusion, not elsewhere classified Plan: Repeat chest X (2) CHF (congestive heart failure): Comment: ECHO 10/13 moderate concentric left ventricle hypertrophy, right ventricular volume overload, severe biatrial enlargement, mild to moderate MR, severe pulmonary hypertension. Heart MR LVEF 50%, LV thickness nl, no segmental wall motion abnormalities 02/13 Code(s): I50.9 - Heart failure, unspecified Plan: Continue current treatment follow-up with Cardiology (3) COPD (chronic obstructive pulmonary disease): Code(s): J44.9 - Chronic obstructive pulmonary disease, unspecified Plan: Continue Symbicort and supplemental O2 (4) CKD (chronic kidney disease), stage III: Comment: renal scarring of left kidney ? old TB, right 2 simple cysts US 3.1 cm and 2.2 cm 03/2019,MR 01/13 - R unchanged 3.2 cm, ill defined renal mass, f/u with urology at [facility] Code(s): N18.30 - Chronic kidney disease, stage 3 unspecified Plan: Monitor renal function and avoid NSAIDs (5) Hyperlipidemia: Code(s): E78.5 - Hyperlipidemia, unspecified Plan: Continue statin (6) HTN (hypertension): Code(s): I10 - Essential (primary) hypertension Plan: Continue current medications, follow-up in 2 months with a fasting labs before (7) GERD (gastroesophageal reflux disease): Code(s): K21.9 - Gastro-esophageal reflux disease without esophagitis (8) Calcified granuloma of lung: Comment: upper lobes bilateral Code(s): J84.10 - Pulmonary fibrosis, unspecified (9) Renal mass: Comment: MR 03/11 3.1 cm R renal mass, [facility] MR 06/15 3.2 cm R renal mass, 6 mth f/u with [facility] Code(s): N28.89 - Other specified disorders of kidney and ureter Orders: Orders Hemoglobin A1c 2 Months E78.5 - Hyperlipidemia, unspecified, I10 - Essential (primary) hypertension, I50.9 - Heart failure, unspecified, J44.9 - Chronic obstructive pulmonary disease, unspecified, J84.10 - Pulmonary fibrosis, unspecified, K21.9 - Gastro-esophageal reflux disease without esophagitis, N18.30 - Chronic kidney disease, stage 3 unspecified IRON PROFILE 2 Months E78.5 - Hyperlipidemia, unspecified, I10 - Essential (primary) hypertension, I50.9 - Heart failure, unspecified, J44.9 - Chronic obstructive pulmonary disease, unspecified, J84.10 - Pulmonary fibrosis, unspecified, K21.9 - Gastro-esophageal reflux disease without esophagitis, N18.30 - Chronic kidney disease, stage 3 unspecified XR chest 1V Today J90 - Pleural effusion, not elsewhere classified Comprehensive [place]. Panel Fast 2 Months E78.5 - Hyperlipidemia, unspecified, I10 - Essential (primary) hypertension, I50.9 - Heart failure, unspecified, J44.9 - Chronic obstructive pulmonary disease, unspecified, J84.10 - Pulmonary fibrosis, unspecified, K21.9 - Gastro-esophageal reflux disease without esophagitis, N18.30 - Chronic kidney disease, stage 3 unspecified B Type Natriuretic Peptide 2 Months E78.5 - Hyperlipidemia, unspecified, I10 - Essential (primary) hypertension, I50.9 - Heart failure, unspecified, J44.9 - Chronic obstructive pulmonary disease, unspecified, J84.10 - Pulmonary fibrosis, unspecified, K21.9 - Gastro-esophageal reflux disease without esophagitis, N18.30 - Chronic kidney disease, stage 3 unspecified Complete Blood Count Auto Diff 2 Months E78.5 - Hyperlipidemia, unspecified, I10 - Essential (primary) hypertension, I50.9 - Heart failure, unspecified, J44.9 - Chronic obstructive pulmonary disease, unspecified, J84.10 - Pulmonary fibrosis, unspecified, K21.9 - Gastro-esophageal reflux disease without esophagitis, N18.30 - Chronic kidney disease, stage 3 unspecified TSH reflex Free T4 2 Months E78.5 - Hyperlipidemia, unspecified, I10 - Essential (primary) hypertension, I50.9 - Heart failure, unspecified, J44.9 - Chronic obstructive pulmonary disease, unspecified, J84.10 - Pulmonary fibrosis, unspecified, K21.9 - Gastro-esophageal reflux disease without esophagitis, N18.30 - Chronic kidney disease, stage 3 unspecified Medications: New amlodipine take with 5 mg qd 2.5 mg PO DAILY 90 tabs 0RF Changed From amlodipine 5 mg PO DAILY 90 tabs 0RF To amlodipine 10 mg PO DAILY Coding Level of Care Code Est Pt Level 4 (26497) Diagnoses Pleural effusion J90 CHF (congestive heart failure) I50.9 COPD (chronic obstructive pulmonary disease) J44.9 CKD (chronic kidney disease), stage III N18.30 Hyperlipidemia E78.5 HTN (hypertension) I10 GERD (gastroesophageal reflux disease) K21.9 Calcified granuloma of lung J84.10 Renal mass N28.89
[2023-02-17 12:02] VITALS: BP 110/66; PULSE 84; O2SAT 92; BMI 27.7
== END 2023-02-17 12:57 | disposition home or self-care (01) ==
PROVIDERS: PCP Internal Medicine; Visit Provider Internal Medicine
DX: I50.9 Heart failure, unspecified (principal); J44.9 Chronic obstructive pulmonary disease, unspecified; N18.30 Chronic kidney disease, stage 3 unspecified; J84.10 Pulmonary fibrosis, unspecified; J90 Pleural effusion, not elsewhere classified; I00-I99 Diseases of the circulatory system; E78.5 Hyperlipidemia, unspecified; K21.9 Gastro-esophageal reflux disease without esophagitis; N28.89 Other specified disorders of kidney and ureter
CPT/HCPCS: 99214

== ENCOUNTER 2023-03-12 14:36 | Outpatient (REF) | payer MEDICARE, MEDICAID, SELFPAY ==
--- NOTE | ~2023-03-12 | XR_ITS ---
EXAMINATION: XR CHEST CLINICAL INFORMATION: Pleural effusion. COMPARISON: Chest radiograph 10/15/2022. TECHNIQUE: 2 views of the chest were obtained. FINDINGS: Stable significant prominence of the cardiomediastinal silhouette. Atherosclerotic disease of the aortic arch. Redemonstration of multifocal indeterminate calcifications, the majority projecting over the upper lungs and several outside of the lung field projecting over the soft tissues of the neck and right-sided chest wall. These are not significantly changed. No new focal airspace density, although evaluation is somewhat limited due to overlying calcifications. Unchanged predominantly central and bibasilar bronchial thickening. Similar mild blunting of the posterior costophrenic angles on the lateral view that could indicate trace effusion or pleural thickening. No pneumothorax. No acute osseous findings. Thoracic spondylosis. Right upper quadrant surgical clips. XR/XR chest 2V IMPRESSION: No significant change compared to 10/15/2022.
== END 2023-03-12 14:37 | disposition home or self-care (01) ==
LOC: HO.HMGCX 14:36
PROVIDERS: PCP Internal Medicine; Visit Provider Internal Medicine
DX: J90 Pleural effusion, not elsewhere classified (principal)
CPT/HCPCS: 71046

== ENCOUNTER 2023-06-10 13:30 | Outpatient (AMB) | payer MEDICARE, MEDICAID, SELFPAY ==
[2023-06-10 13:39] VITALS: BP 128/64; PULSE 74; O2SAT 92; BMI 26.6
--- NOTE | 2023-06-10 13:39 | A.OFFVIS_ITS ---
Intake Vital Signs 06/10/23 13:39 Height 5 ft 7 in Weight 170 lb BMI 26.6 BP 128/64 Blood Pressure Location Rt brachial Position Sitting Pulse 74 Pulse Source Pulse Oximeter Pulse Oximetry (%) 92 Oxygen Delivery Method Nasal Cannula Intake Visit Reasons: SWV G0439 Intake Note: Pt is here today for a AWV. tPt's daughter states that pt needs a refill on Amlodipine 10 mg as pt has been taking it for BP. Allergies lisinopril Adverse Reaction (Severe, Verified 06/10/23 13:39) hyperkalemia Medication List - Last Reconciled 06/10/23 by Stormy Topete MD amlodipine 10 mg (2 x 5 mg) PO DAILY apixaban (Eliquis) 5 mg PO BID aspirin 81 mg PO DAILY budesonide-formoterol 80-4.5 mcg/actuation (Symbicort) 2 puffs inhalation BID carvedilol 25 mg PO BID empagliflozin (Jardiance) 10 mg PO DAILY famotidine 20 mg PO DAILY furosemide 40 mg PO BID hydralazine 25 mg PO BID levothyroxine 88 mcg PO DAILY Oxygen Home Use PORTABLE OXYGEN pravastatin 20 mg PO DAILY HPI SWV G0439 HPI Details Patient presents for annual visit. 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 Initiated the conversation about Advanced Directives. Advanced Directives help? patients prepare for current and future decisions about their medical treatment? and place of care. Discussed with patient that it is a process where a patients? current condition and prognosis are reviewed, their wishes for information? rega rding their illness are elicited, and likely medical dilemmas are presented? and options discussed. The form can be amended as needed, reviewed yearly and? make changes as needed IPPE/AWV ? year old presents? for her ? Annual? Wellness Visit, initial visit.? Medical / Social History Reviewed? Past Medical History ?Yes? . ? [place]? of Care / Care Team list updated ?Yes . ? Surgical/Hospitalization? History ?Yes . ? Current Medications? (including OTC and supplements) ?Yes . ? Family History ?Yes? . ? Tobacco? Control form ?Yes . ? AUDIT-C (Alcohol use) form? ?Yes . ? Illicit drug use in Social? History ?Yes . ? Current diagnosis of? depression? ?No ? Appropriate PHQ2/PHQ9? completed ?Yes . ? Data entered by ?Medical? Director Of Procurement and reviewed by provider ? Fall Risk ? Fall? History? Have you had any falls with? injury in the past year? ?No . ? Have you had two or more? falls in the past year? ?No . ? Fall Risk Assessment: ?No? falls in the past year . ? HRA filled out by? the patient, reviewed by Provider and scanned. ? IPPE/AWV ? Balance? Romberg? ?Yes . ? Tandem? walk ?Yes . ? Walk and? Turn ?Yes . ? Rise from? sit to stand ?Yes . ?Vision? Corrective? lens ?Yes ? Vision? screen ? Up-to-date, has an appointment [] for vision? screening and glaucoma screening ?Hearing? Whisper? test ?pass .? Initiated the conversation about Advanced Directives. Advanced Directives help? patients prepare for current and future decisions about their medical treatment? and place of care. Discussed with patient that it is a process where a patients? current condition and prognosis are reviewed, their wishes for information? regarding their illness are elicited, and likely medical dilemmas are presented? and options discussed. The form can be amended as needed, reviewed yearly and? make changes as needed Written? Plan?Completed. See Patient? Documents. [facility] Medical History (Updated 02/17/23 @ 12:55 by Stormy Topete MD) CHF (congestive heart failure) Impacted cerumen of both ears Annual physical exam Hyperglycemia Chest pain Renal mass Hypothyroidism Pancreatic cyst Lumbar radiculopathy Hyperparathyroidism CKD (chronic kidney disease), stage III COPD (chronic obstructive pulmonary disease) Hyperlipidemia HTN (hypertension) Surgical History H/O colonoscopy No pertinent past surgical history Family History Father Unknown family medical history Mother Unknown family medical history Social History Housing: House Alcohol intake: never Patient Tobacco Use Status: Never used Tobacco e-Cigarette/Vaping Use: Never Used Current occupational status: retired Cognitive needs: No Hearing needs: No Vision needs: No Questionnaire Medicare Wellness Checkup What is your age?: 81 or older What gender do you identify with?: female During the past 4 weeks, how much have you been bothered by emotional problems such as feeling anxious, depressed, irritable, sad or downhearted, and blue?: slightly During the past 4 weeks, has your physical & emotional health limited your social activities with family, friends, neighbors, or groups?: slightly During the past 4 weeks, how much bodily pain have you generally had?: mild pain During the past 4 weeks, was someone available to help you if you needed & wanted help?: yes, as much as I wanted During the past 4 weeks, what was the hardest physical activity you could do for at least 2 minutes?: light Can you get to places out of walking distance without help? (For eg., can you travel alone on buses, taxis or drive your car?): Yes Can you go shopping for groceries or clothes without someone's help?: No Can you prepare your own meals?: Yes Can you do your housework without help?: Yes Because of any health problems, do you need the help of another person with your personal care needs such as eating, bathing, dressing or getting around the house?: No Can you handle your own money without help?: Yes During the past 4 weeks, how would you rate your health in general?: good During the past 4 weeks how have things been going for you?: pretty well Are you having difficulties driving your car?: not applicable, I don't use a car Do you always fasten your seat belt when you are in a car?: yes, usually During past 4 weeks, have you been bothered by the following: never: Sexual problems?, Teeth or denture problems? and Problems using the telephone?, seldom: Trouble eating well? and Tiredness or fatigue? and sometimes: Falling or dizzy when standing up Have you fallen 2 or more times in the past year?: No Are you afraid of falling?: No Are you a smoker?: no During the past 4 weeks, how many drinks of wine, beer, or other alcoholic beverages did you have?: no alcohol at all Do you exercise for about 20 minutes 3 or more times a week?: no, I usually do not exercise this much Have you been given information to help with the following?: yes: Hazards in your house that might hurt you? and yes: Keeping track of your medications? How often do you have trouble taking medicines the way you have been told to take them?: I always take medicine as prescribed How confident are you that you can control & manage most of your health problems?: somewhat confident What is your race?: White Mini Mental State Exam (MMSE) Orientation What is the (year) (season) (date) (day) (month)?: year, season, date, day and month Where are we (state) (county) (town or city) (hospital) (floor)?: state, county, town or city, hospital/clinic and floor Registration Name of 3 unrelated objects clearly and slowly, then ask patient to repeat all 3 of them. (1st repeat determines score. Make sure they can repeat all three): object 1, object 2 and object 3 Attention & Calculation (CHOOSE ONE) Spell WORLD backwards (DLROW): 5 letters Recall Ask patient to repeat the 3 items from question #3.: object 1, object 2 and object 3 Language Show patient a wristwatch & ask what it is. Repeat for pencil.: watch and pencil Ask the patient to repeat the phrase 'No ifs, ands, or buts' after you.: correct Print the sentence 'CLOSE YOUR EYES' on a piece. If patient actually closes eyes then score.: followed written direction Score Score: 25 Activity of Daily Living Bathing - sponge bath, tub bath or shower: receives no assistance (gets in/out by self, if usual bathing means Dressing - getting clothes from closets & drawers, including inner/outer garments & fasteners.: gets clothes & gets completely dressed without help Toileting - going to the 'toilet room' for urine/bowel elimination & cleaning self/arranging clothes: goes to toilet room, cleans self, arranges clothes without help Transfer: moves in & out of bed and chair without help (may use support object) Continence: controls urination/bowel movements completely by self Feeding: feeds self without help Total Score: 0 Information obtained from: patient Using telephone: independent Traveling: dependent Shopping: dependent Preparing meals: independent Housework: independent Taking medicine: independent Managing money: independent PHQ-9 Over the last 2 weeks, how often have you been bothered by any of the following problems? 1. Little interest or pleasure in doing things: several days 2. Feeling down, depressed, or hopeless: not at all 3. Trouble falling or staying asleep, or sleeping too much: several days 4. Feeling tired or having little energy: several days 5. Poor appetite or overeating: not at all 6. Feeling bad about yourself - or that you are a failure or have let yourself or your family down: not at all 7. Trouble concentrating on things, such as reading the newspaper or watching television: not at all 8. Moving or speaking so slowly that other people could have noticed. Or the opposite - being so fidgety or restless that you have been moving around a lot more than usual: not at all 9. Thoughts that you would be better off or of hurting yourself in some way: not at all Total score: 3 Depression Screening Interpretation: Negative Depression Screening Done: Yes Source: Developed by Drs. Madhu Monroy, Shyla Hill, Abner Vieyra and colleagues, with an educational ryan from [employer]. Review of Systems Const All systems reviewed & are unremarkable except as noted in HPI and below Reports no additional complaints Eyes Reports no additional complaints ENT Reports no additional complaints Card Reports no additional complaints Resp Reports no additional complaints GI Reports no additional complaints Reports no additional complaints Physical Exam Vital Signs: Last Vital Signs Pulse 74 06/10/23 13:39 BP 128/64 06/10/23 13:39 Pulse Ox 92 06/10/23 13:39 Oxygen Delivery Method Nasal Cannula 06/10/23 13:39 BMI result Body Mass Index 26.6 Const General: no acute distress HEENT Head: Yes normal to inspection Ears: hearing grossly normal bilaterally Resp Effort & Inspection: normal respiratory effort Auscultation: diminished lung sounds Cardio Rhythm: abnormal rhythm irregularly irregular Heart sounds: S1 normal heart sound present and S2 normal heart sound present GI Inspection: Yes normal to inspection Palpation (GI): Soft to palpation Percussion: Yes normal to percussion Auscultation: normal bowel sounds Extrem Other: 2+ pitting edema bilaterally Assessment & Plan Assessment & Plan (1) CHF (congestive heart failure): Comment: ECHO 10/13 moderate concentric left ventricle hypertrophy, right ventricular volume overload, severe biatrial enlargement, mild to moderate MR, severe pulmonary hypertension. 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 Code(s): N18.30 - Chronic kidney disease, stage 3 unspecified Plan: Monitor renal function follow-up with urology (4) Hyperglycemia: Code(s): R73.9 - Hyperglycemia, unspecified Plan: ADA diet discussed with the patient check A1c, follow-up in 3 month Orders: Orders Hemoglobin A1c Today I50.9 - Heart failure, unspecified, J44.9 - Chronic obstructive pulmonary disease, unspecified, N18.30 - Chronic kidney disease, stage 3 unspecified, R73.9 - Hyperglycemia, unspecified UA w Microscopic Today I50.9 - Heart failure, unspecified Comprehensive Met. Panel Today I10 - Essential (primary) hypertension, I50.9 - Heart failure, unspecified, N18.30 - Chronic kidney disease, stage 3 unspecified, R73.9 - Hyperglycemia, unspecified B Type Natriuretic Peptide Today I50.9 - Heart failure, unspecified, J44.9 - Chronic obstructive pulmonary disease, unspecified, N18.30 - Chronic kidney disease, stage 3 unspecified, R73.9 - Hyperglycemia, unspecified Complete Blood Count Auto Diff Today I50.9 - Heart failure, unspecified, J44.9 - Chronic obstructive pulmonary disease, unspecified, N18.30 - Chronic kidney disease, stage 3 unspecified, R73.9 - Hyperglycemia, unspecified TSH reflex Free T4 Today I50.9 - Heart failure, unspecified, J44.9 - Chronic obstructive pulmonary disease, unspecified, N18.30 - Chronic kidney disease, stage 3 unspecified, R73.9 - Hyperglycemia, unspecified IRON PROFILE Today I10 - Essential (primary) hypertension, I50.9 - Heart failure, unspecified, N18.30 - Chronic kidney disease, stage 3 unspecified, R73.9 - Hyperglycemia, unspecified Medications: New amlodipine 10 mg PO DAILY 90 tabs 3RF Discontinued amlodipine Discontinued Reason: Doctor's Order 10 mg (2 x 5 mg) PO DAILY 90 tabs 3RF Quality Reporting (2019) Depression/Bipolar (159/160/161/177) PHQ-9: Total score: 3 Coding Level of Care Code Medicare Subsequent (G0439) Diagnoses CHF (congestive heart failure) I50.9 COPD (chronic obstructive pulmonary disease) J44.9 CKD (chronic kidney disease), stage III N18.30 Hyperglycemia R73.9 CPT Codes Advance Care Planning - Time spent: 1-15 minutes, not on file ([id number]) Advance Care Planning Advance Care Planning discussion: Exists, not on file Date of discussion: 06/10/23 Forms completed: Health Care Proxy Time spent: 1-15 minutes, not on file
== END 2023-06-10 15:16 | disposition home or self-care (01) ==
PROVIDERS: PCP Internal Medicine; Visit Provider Internal Medicine
DX: I50.9 Heart failure, unspecified (principal); J44.9 Chronic obstructive pulmonary disease, unspecified; N18.30 Chronic kidney disease, stage 3 unspecified; R73.9 Hyperglycemia, unspecified; Z00.00 Encounter for general adult medical examination without abnormal findings
CPT/HCPCS: 1124F; G0439

== ENCOUNTER 2023-06-10 14:21 | Outpatient (REF) | payer MEDICARE, MEDICAID, SELFPAY ==
[2023-06-10 16:13] LABS: MANUAL DIFF FLAG NO
[2023-06-10 16:21] LABS: Basophils Percent Auto 0.3 % (0-2); Eosinophils Absolute Auto 0.2 X10*3/uL (0.0-0.4); Eosinophils Percent Auto 2.3 % (0-4); Hematocrit 37.8 % (37.0-47.0); Hemoglobin 11.6 g/dl (12.0-16.0); Imm Gran Abs Auto 0.01 X10*3/uL (0.00-0.03); Imm Gran Pct Auto 0.1 % (0.0-0.4); Lymphocytes Absolute Auto 0.8 X10*3/uL (1.2-4.9); Lymphocytes Percent Auto 12.1 % (20-40); Mean Corpuscular HGB Conc 30.7 g/dl (31.0-35.0); Mean Corpuscular Hemoglobin 26.7 pg (27.0-33.0); Mean Corpuscular Volume 87.1 fL (80.0-98.0); Mean Platelet Volume 10.9 fL (9.4-12.3); Monocytes Absolute Auto 0.6 X10*3/uL (0.1-1.2); Monocytes Percent Auto 8.6 % (2-11); Neutrophils Absolute Auto 5.3 x10*3/uL (2.0-8.3); Neutrophils Percent Auto 76.6 % (45-73); Platelet Count 236 X10*3/uL (160-400); Red Blood Count 4.34 X10*6/uL (4.20-5.50); Red Cell Distribution Width 14.5 % (11.0-16.0); White Blood Count 6.9 X10*3/uL (4.8-10.8)
[2023-06-10 16:28] LABS: Estimated Average Glucose 128 mg/dL; Hemoglobin A1c % 6.1 % (<6.0)
[2023-06-10 17:06] LABS: Appearance Urine Clear; Color Urine Yellow; Glucose Urine UA 500 mg/dL (Negative); Leukocyte Esterase Urine Moderate (2+) (Negative); Nitrite Urine Negative (Negative); PH 5.5 (5.0-9.0); UMIC TRIGGER UA YES; Urine Blood Negative (Negative); Urine Ketones Negative (Negative); Urine Protein Trace mg/dL (Neg-Trace)
[2023-06-10 17:25] LABS: B Type Natriuretic Peptide 562 pg/mL (<100)
[2023-06-10 17:33] LABS: Alanine Aminotransferase 13 U/L (0-31); Albumin Level 4.3 g/dL (3.5-5.0); Alkaline Phosphatase 97 U/L (39-117); Anion Gap 16 (12-20); Aspartate Amino Transferase 19 U/L (5-31); Bilirubin Total 1.3 mg/dL (0.0-1.0); Blood Urea Nitrogen 28 mg/dL (9-16); Calcium 9.2 mg/dL (8.4-10.2); Carbon Dioxide 28 mmol/L (22-29); Chloride 103 mmol/L (96-108); Estimated Glomerular Filt Rate 38; Glucose Random 106 mg/dL (60-115); Iron 31 mcg/dL (30-160); Percent Iron Saturation 8 % (15-50); Sodium 143 mmol/L (135-145); Total Iron Binding Capacity 401 mcg/dL (228-428); Total Protein 8.1 g/dL (6.5-8.0); Unsaturated Iron Binding 370 ug/dL
[2023-06-10 17:49] LABS: TSH reflex Free T4 8.12 uIU/mL (0.32-4.0)
[2023-06-10 18:21] LABS: Bacteria Urine 1+ (None Seen); Hyaline Casts Urine 0-2 /LPF (0-2); RBC Urine 0-2 /HPF (0-2); Squamous Epithelial Cell Urine 0-2 /HPF (0-2); WBC Urine >50 /HPF (0-5)
[2023-06-10 18:48] LABS: Free T4 (Free Thyroxine) 0.98 ng/dL (0.71-1.85)
== END 2023-06-10 14:22 | disposition home or self-care (01) ==
LOC: HO.HMGCLDS 14:21
PROVIDERS: PCP Internal Medicine; Visit Provider Internal Medicine
DX: I13.0 Hypertensive heart and chronic kidney disease with heart failure and stage 1 through stage 4 chronic kidney disease, or unspecified chronic kidney disease (principal); I50.9 Heart failure, unspecified; N18.30 Chronic kidney disease, stage 3 unspecified; R73.9 Hyperglycemia, unspecified; J44.9 Chronic obstructive pulmonary disease, unspecified
CPT/HCPCS: 36415; 80053; 81001; 83036; 83540; 83880; 84439; 84443; 85025

== ENCOUNTER 2023-09-06 14:52 | Outpatient (REF) | payer MEDICARE, MEDICAID, SELFPAY ==
[2023-09-06 18:03] LABS: TSH reflex Free T4 3.52 uIU/mL (0.32-4.0)
== END 2023-09-06 14:53 | disposition home or self-care (01) ==
LOC: HO.HMGCLDS 14:52
PROVIDERS: PCP Internal Medicine; Visit Provider Internal Medicine
DX: E03.9 Hypothyroidism, unspecified (principal)
CPT/HCPCS: 36415; 84443

== ENCOUNTER 2023-09-18 08:57 | Outpatient (REF) | payer MEDICARE, MEDICAID, SELFPAY ==
[2023-09-18 11:33] LABS: MANUAL DIFF FLAG NO
[2023-09-18 11:47] LABS: Basophils Percent Auto 0.3 % (0-2); Eosinophils Absolute Auto 0.1 X10*3/uL (0.0-0.4); Eosinophils Percent Auto 2.2 % (0-4); Hematocrit 36.2 % (37.0-47.0); Hemoglobin 10.8 g/dl (12.0-16.0); Imm Gran Abs Auto 0.01 X10*3/uL (0.00-0.03); Imm Gran Pct Auto 0.2 % (0.0-0.4); Lymphocytes Absolute Auto 0.9 X10*3/uL (1.2-4.9); Lymphocytes Percent Auto 15.5 % (20-40); Mean Corpuscular HGB Conc 29.8 g/dl (31.0-35.0); Mean Corpuscular Hemoglobin 25.1 pg (27.0-33.0); Mean Platelet Volume 10.2 fL (9.4-12.3); Monocytes Absolute Auto 0.5 X10*3/uL (0.1-1.2); Monocytes Percent Auto 8.3 % (2-11); Neutrophils Absolute Auto 4.4 x10*3/uL (2.0-8.3); Neutrophils Percent Auto 73.5 % (45-73); Platelet Count 216 X10*3/uL (160-400); Red Blood Count 4.31 X10*6/uL (4.20-5.50); Red Cell Distribution Width 15.8 % (11.0-16.0)
[2023-09-18 12:06] LABS: Alanine Aminotransferase 13 U/L (0-31); Albumin Level 4.2 g/dL (3.5-5.0); Alkaline Phosphatase 91 U/L (39-117); Anion Gap 13 (12-20); Aspartate Amino Transferase 19 U/L (5-31); Bilirubin Total 1.5 mg/dL (0.0-1.0); Blood Urea Nitrogen 27 mg/dL (9-16); Calcium 9.1 mg/dL (8.4-10.2); Carbon Dioxide 34 mmol/L (22-29); Chloride 101 mmol/L (96-108); Estimated Glomerular Filt Rate 37; Glucose Fasting 113 mg/dL (60-99); Potassium 4.2 mmol/L (3.3-5.1); Sodium 144 mmol/L (135-145); Total Protein 7.9 g/dL (6.5-8.0)
[2023-09-18 12:30] LABS: TSH reflex Free T4 5.68 uIU/mL (0.32-4.0)
[2023-09-18 13:17] LABS: Free T4 (Free Thyroxine) 1.22 ng/dL (0.71-1.85)
== END 2023-09-18 08:58 | disposition home or self-care (01) ==
LOC: HO.HMGCLDS 08:57
PROVIDERS: PCP Internal Medicine; Visit Provider Internal Medicine
DX: E03.9 Hypothyroidism, unspecified (principal); I50.9 Heart failure, unspecified; N18.30 Chronic kidney disease, stage 3 unspecified
CPT/HCPCS: 36415; 80053; 84439; 84443; 85025

== ENCOUNTER 2023-09-20 14:10 | Outpatient (AMB) | payer MEDICARE, MEDICAID, SELFPAY ==
[2023-09-20 14:14] VITALS: BP 130/68; BMI 26.7
--- NOTE | 2023-09-20 14:14 | A.OFFPC_ITS ---
Vital Signs 09/20/23 14:14 Height 5 ft 7 in Weight 170 lb 6 oz BMI 26.7 BP 130/68 Blood Pressure Location Lt brachial Position Sitting Intake Visit Reasons: 3 month follow up Allergies lisinopril Adverse Reaction (Severe, Verified 09/20/23 14:14) hyperkalemia Medication List - Last Reconciled 09/20/23 by Stormy Topete MD amlodipine 10 mg PO DAILY apixaban (Eliquis) 5 mg PO BID carvedilol 25 mg PO BID empagliflozin (Jardiance) 10 mg PO DAILY furosemide 40 mg PO BID hydralazine 25 mg PO BID levothyroxine 112 mcg PO DAILY Oxygen Home Use PORTABLE OXYGEN pravastatin 20 mg PO DAILY Tobacco use date assessed: 09/20/23 Fall risk assessment: No Falls in past year Last assessed Fall Risk: 09/20/23 Dental Screening Dental Screen Date: 09/20/23 Did you have a dental visit in the last 12 months?: No Did you have a dental problem in the last 6 months where you did not have access to dental care?: No Was dental information given to patient?: No HPI 3 month follow up HPI Details Patient presents for the follow-up of hypertension, chronic kidney disease stage 3, heart failure with preserved ejection fraction, hypothyroidism O2 dependent COPD/restrictive lung disease. [facility] Medical History (Updated 09/20/23 @ 15:17 by Stormy Topete MD) CHF (congestive heart failure) Impacted cerumen of both ears Annual physical exam Hyperglycemia Chest pain Renal mass Hypothyroidism Pancreatic cyst Lumbar radiculopathy Hyperparathyroidism CKD (chronic kidney disease), stage III COPD (chronic obstructive pulmonary disease) Hyperlipidemia HTN (hypertension) Surgical History H/O colonoscopy No pertinent past surgical history Family History Father Unknown family medical history Mother Unknown family medical history Social History Housing: House Alcohol intake: never Patient Tobacco Use Status: Never used Tobacco e-Cigarette/Vaping Use: Never Used service: No Current occupational status: retired Cognitive needs: No Hearing needs: No Vision needs: No Questionnaire Thrive Questionnaire Date Thrive assessed: 06/05/22 AUDIT C Alcohol Use Questionnaire (AUDIT-C) 1. How often do you have a drink containing alcohol?: Never 3. How often do you have six or more drinks on one occasion?: Never Total Score: 0 Score Reviewed/Action Taken: Yes EDDIE-7 AMB Questionnaire EDDIE-7 Date EDDIE - 7 assessed: 06/05/22 Source: Developed by Drs. Madhu Monroy, Shyla Hill, Abner Vieyra and colleagues, with an educational ryan from [employer]. Review of Systems Const All systems reviewed & are unremarkable except as noted in HPI and below Eyes Reports no additional complaints Card Reports no additional complaints Resp Reports no additional complaints GI Reports no additional complaints Reports no additional complaints Physical exam (Primary Care) Vital Signs: Last Vital Signs BP 130/68 09/20/23 14:14 BMI result Body Mass Index 26.7 Tobacco/Smoking Status: Tobacco use Status Tobacco use date assessed 09/20/23 09/20/23 14:22 Patient Tobacco Use Status Never used Tobacco 09/20/23 14:22 e-Cigarette/Vaping Use Never Used 09/20/23 14:22 Thrive Assessment: Date of Thrive Assessment Date Thrive assessed 06/05/22 09/20/23 14:22 Const General: no acute distress HENMT Ears: hearing grossly normal bilaterally Eyes General: appearance normal, both eyes and all related structures Neck Neck: Yes supple Resp Effort & Inspection: normal respiratory effort Auscultation: clear to auscultation bilaterally Cardio Rhythm: regular rhythm Heart sounds: S1 normal heart sound present and S2 normal heart sound present GI Inspection: Yes normal to inspection Palpation (GI): Soft to palpation Percussion: Yes normal to percussion Auscultation: normal bowel sounds Extrem Other: 1+ pitting edema Assessment and Plan Assessment & Plan (1) CKD (chronic kidney disease), stage III: Comment: renal scarring of left kidney ? old TB, right 2 simple cysts US 3.1 cm and 2.2 cm 03/2019,MR 8 - R unchanged 3.2 cm, ill defined renal mass, f/u with urology at [facility] Code(s): N18.30 - Chronic kidney disease, stage 3 unspecified Plan: Monitor renal function avoid nephrotoxic (2) Hypothyroidism: Code(s): E03.9 - Hypothyroidism, unspecified Plan: Increase levothyroxine to 112 mcg check TSH (3) CHF (congestive heart failure): Comment: ECHO 10/13 moderate concentric left ventricle hypertrophy, right ventricular volume overload, severe biatrial enlargement, mild to moderate MR, severe pulmonary hypertension. Heart MR LVEF 50%, LV thickness nl, no segmental wall motion abnormalities 02/13 Code(s): I50.9 - Heart failure, unspecified Plan: Continue current medications (4) Renal mass: Comment: MR 03/11 3.1 cm R renal mass, [facility] MR 06/15 3.2 cm R renal mass, 6 mth f/u with [facility] Code(s): N28.89 - Other specified disorders of kidney and ureter Plan: Follow-up with urology (5) COPD (chronic obstructive pulmonary disease): Comment: O2 dependent Code(s): J44.9 - Chronic obstructive pulmonary disease, unspecified Orders: Orders Comprehensive Met. Panel 3 Months E03.9 - Hypothyroidism, unspecified, I50.9 - Heart failure, unspecified, N18.30 - Chronic kidney disease, stage 3 unspecified, N28.89 - Other specified disorders of kidney and ureter TSH reflex Free T4 3 Months E03.9 - Hypothyroidism, unspecified, I50.9 - Heart failure, unspecified, N18.30 - Chronic kidney disease, stage 3 unspecified, N28.89 - Other specified disorders of kidney and ureter Complete Blood Count Auto Diff 3 Months E03.9 - Hypothyroidism, unspecified, I50.9 - Heart failure, unspecified, N18.30 - Chronic kidney disease, stage 3 unspecified, N28.89 - Other specified disorders of kidney and ureter Medications: New levothyroxine 112 mcg PO DAILY 90 tabs 3RF empagliflozin (Jardiance) 10 mg PO DAILY 90 tabs 3RF Refilled apixaban (Eliquis) 5 mg PO BID 180 tabs 3RF pravastatin 20 mg PO DAILY 90 tabs 3RF carvedilol must administer with a meal/food 25 mg PO BID 180 tabs 3RF amlodipine 10 mg PO DAILY 90 tabs 3RF furosemide 40 mg PO BID 180 tabs 3RF hydralazine 25 mg PO BID 180 tabs 3RF Discontinued famotidine Discontinued Reason: Duplicate 20 mg PO DAILY 90 tabs 3RF K21.9 - Gastro- esophageal reflux disease without esophagitis levothyroxine Discontinued Reason: Doctor's Order 100 mcg PO DAILY 90 tabs 0RF Coding Level of Care Code Est Pt Level 4 (43389) Diagnoses CKD (chronic kidney disease), stage III N18.30 Hypothyroidism E03.9 CHF (congestive heart failure) I50.9 Renal mass N28.89 COPD (chronic obstructive pulmonary disease) J44.9
== END 2023-09-20 15:12 | disposition home or self-care (01) ==
PROVIDERS: PCP Internal Medicine; Visit Provider Internal Medicine
DX: N18.30 Chronic kidney disease, stage 3 unspecified (principal); I50.9 Heart failure, unspecified; J44.9 Chronic obstructive pulmonary disease, unspecified; E03.9 Hypothyroidism, unspecified; N28.89 Other specified disorders of kidney and ureter
CPT/HCPCS: 99214

== ENCOUNTER 2024-01-19 14:05 | Outpatient (AMB) | payer MEDICARE, MEDICAID, SELFPAY ==
[2024-01-19 14:07] VITALS: BP 128/72; PULSE 92; O2SAT 93; BMI 26.3
--- NOTE | 2024-01-19 14:07 | A.OFFPC_ITS ---
Vital Signs 01/19/24 14:07 Height 5 ft 7 in Weight 168 lb BMI 26.3 BP 128/72 Blood Pressure Location Lt brachial Position Sitting Pulse 92 Pulse Source Pulse Oximeter Pulse Oximetry (%) 93 Oxygen Delivery Method Nasal Cannula Intake Visit Reasons: Follow up Intake Note: Pt is here today for a follow up visit. Allergies lisinopril Adverse Reaction (Severe, Verified 01/19/24 14:07) hyperkalemia Medication List - Last Reconciled 01/19/24 by Stormy Topete MD amlodipine 10 mg PO DAILY apixaban (Eliquis) 5 mg PO BID Breo Ellipta 100-25 mcg/dose (fluticasone furoate-vilanterol) 1 inh inhalation DAILY NS carvedilol 25 mg PO BID empagliflozin (Jardiance) 10 mg PO DAILY furosemide 40 mg PO DAILY hydralazine 25 mg PO BID levothyroxine 112 mcg PO DAILY Oxygen Home Use PORTABLE OXYGEN pravastatin 20 mg PO DAILY Tobacco use date assessed: 01/19/24 Dental Screening Dental Screen Date: 09/20/23 HPI Follow up HPI Details PATIENT PRESENTS FOR THE FOLLOW-UP OF HYPERTENSION, HEART FAILURE WITH PRESERVED EJECTION FRACTION CHRONIC KIDNEY DISEASE STAGE 3, O2 DEPENDENT COPD, [facility] Medical History CHF (congestive heart failure) Impacted cerumen of both ears Annual physical exam Hyperglycemia Chest pain Renal mass Hypothyroidism Pancreatic cyst Lumbar radiculopathy Hyperparathyroidism CKD (chronic kidney disease), stage III COPD (chronic obstructive pulmonary disease) Hyperlipidemia HTN (hypertension) Surgical History H/O colonoscopy No pertinent past surgical history Family History Father Unknown family medical history Mother Unknown family medical history Social History Housing: House Alcohol intake: never Patient Tobacco Use Status: Never used Tobacco e-Cigarette/Vaping Use: Never Used service: No Current occupational status: retired Cognitive needs: No Hearing needs: No Vision needs: No Questionnaire Thrive Questionnaire Date Thrive assessed: 01/12/24 I am a: Patient What is your living situation today?: I have a steady place to live Within the past 12 months, did the food you bought not last and you didn't have the money to get more?: I choose not to answer this question Within the past 12 months, did you worry whether your food would run out before you got money to buy more?: I choose not to answer this question Do you have trouble paying for medicines?: I choose not to answer this question Do you have trouble getting transportation to medical appointments?: I choose not to answer this question Do you have trouble paying your heating and electricity bill?: I choose not to answer this question Do you have trouble taking care of your child, family member or friend?: I choose not to answer this question Do you have trouble with day-to-day activities such as bathing, preparing meals, shopping, managing finances, etc.?: I choose not to answer this question Are you currently unemployed and looking for a job?: No Are you interested in more education?: I choose not to answer this question Please select the resources that you would like help with: None Currently or been in a relationship where the following occur: I choose not to a nswer THRIVE Score: 0 AUDIT C Alcohol Use Questionnaire (AUDIT-C) 1. How often do you have a drink containing alcohol?: Never 3. How often do you have six or more drinks on one occasion?: Never Total Score: 0 EDDIE-7 AMB Questionnaire EDDIE-7 Date EDDIE - 7 assessed: 06/05/22 Feeling nervous, anxious, or on edge: 0 = Not at all Not being able to stop or control worryin = Not at all Worrying too much about different things: 0 = Not at all Trouble relaxin = Not at all Being so restless that it is hard to sit still: 0 = Not at all Becoming easily annoyed or irritable: 0 = Not at all Feeling afraid as if something awful might happen: 0 = Not at all Total EDDIE-7 score (0-4 normal; 5-9 mild; 10-14 moderate; 15-21 severe): 0 Source: Developed by Drs. Madhu Monroy, Shyla Hill, Abner Vieyra and colleagues, with an educational ryan from [email or web address] Review of Systems Const All systems reviewed & are unremarkable except as noted in HPI and below Eyes Reports no additional complaints ENT Reports no additional complaints Card Reports no additional complaints Resp Reports no additional complaints GI Reports no additional complaints Reports no additional complaints Physical exam (Primary Care) Vital Signs: Last Vital Signs Pulse 92 01/19/24 14:07 BP 128/72 01/19/24 14:07 Pulse Ox 93 01/19/24 14:07 Oxygen Delivery Method Nasal Cannula 01/19/24 14:07 BMI result Body Mass Index 26.3 Tobacco/Smoking Status: Tobacco use Status Tobacco use date assessed 01/19/24 01/19/24 14:28 Patient Tobacco Use Status Never used Tobacco 01/19/24 14:11 e-Cigarette/Vaping Use Never Used 01/19/24 14:11 Thrive Assessment: Date of Thrive Assessment Date Thrive assessed 01/12/24 01/19/24 14:11 Currently or been in a relationship where the following occur: I choose not to answer Const General: no acute distress HENMT Ears: hearing grossly normal bilaterally Eyes General: appearance normal, both eyes and all related structures Neck Neck: Yes supple Resp Effort & Inspection: normal respiratory effort Auscultation: clear to auscultation bilaterally Cardio Rhythm: regular rhythm Heart sounds: S1 normal heart sound present and S2 normal heart sound present GI Inspection: Yes normal to inspection Palpation (GI): Soft to palpation Auscultation: normal bowel sounds Extrem Other: +2 pitting edema bilaterally Assessment and Plan Assessment & Plan (1) COPD (chronic obstructive pulmonary disease): Comment: O2 dependent Code(s): J44.9 - Chronic obstructive pulmonary disease, unspecified Plan: Continue supplemental O2 and Breo (2) CKD (chronic kidney disease), stage III: Comment: renal scarring of left kidney ? old TB, right 2 simple cysts US 3.1 cm and 2.2 cm 03/2019,MR 01/13 - R unchanged 3.2 cm, ill defined renal mass, f/u with urology at [facility] Code(s): N18.30 - Chronic kidney disease, stage 3 unspecified Plan: Monitor renal function avoid nephrotoxins (3) Hypothyroidism: Code(s): E03.9 - Hypothyroidism, unspecified Plan: Continue Levothyroxine (4) CHF (congestive heart failure): Comment: ECHO 10/13 moderate concentric left ventricle hypertrophy, right ventricular volume overload, severe biatrial enlargement, mild to moderate MR, severe pulmonary hypertension. Heart MR LVEF 50%, LV thickness nl, no segmental wall motion abnormalities 02/13 Code(s): I50.9 - Heart failure, unspecified Plan: Continue current medications follow-up with [facility] Cardiology (5) Anemia: Code(s): D64.9 - Anemia, unspecified Plan: Monitor CBC (6) Calcified granuloma of lung: Comment: upper lobes bilaterally Code(s): J84.10 - Pulmonary fibrosis, unspecified Plan: Stable. Continue supplemental O2 Orders: Orders B Type Natriuretic Peptide 3 Months D64.9 - Anemia, unspecified, E03.9 - Hypothyroidism, unspecified, I50.9 - Heart failure, unspecified, J44.9 - Chronic obstructive pulmonary disease, unspecified, J84.10 - Pulmonary fibrosis, unspecified, N18.30 - Chronic kidney disease, stage 3 unspecified TSH reflex Free T4 3 Months D64.9 - Anemia, unspecified, E03.9 - Hypothyroidism, unspecified, I50.9 - Heart failure, unspecified, J44.9 - Chronic obstructive pulmonary disease, unspecified, J84.10 - Pulmonary fibrosis, unspecified, N18.30 - Chronic kidney disease, stage 3 unspecified Comprehensive [place]. Panel Fast 3 Months D64.9 - Anemia, unspecified, E03.9 - Hypothyroidism, unspecified, I50.9 - Heart failure, unspecified, J44.9 - Chronic obstructive pulmonary disease, unspecified, J84.10 - Pulmonary fibrosis, unspecified, N18.30 - Chronic kidney disease, stage 3 unspecified Lipid Panel 3 Months D64.9 - Anemia, unspecified, E03.9 - Hypothyroidism, unspecified, I50.9 - Heart failure, unspecified, J44.9 - Chronic obstructive pulmonary disease, unspecified, J84.10 - Pulmonary fibrosis, unspecified, N18.30 - Chronic kidney disease, stage 3 unspecified Complete Blood Count Auto Diff 3 Months D64.9 - Anemia, unspecified, E03.9 - Hypothyroidism, unspecified, I50.9 - Heart failure, unspecified, J44.9 - Chronic obstructive pulmonary disease, unspecified, J84.10 - Pulmonary fibrosis, unspecified, N18.30 - Chronic kidney disease, stage 3 unspecified Medications: Changed From furosemide 40 mg PO BID 180 tabs 3RF To furosemide 40 mg PO DAILY Coding Level of Care Code Est Pt Level 4 (22216) Diagnoses COPD (chronic obstructive pulmonary disease) J44.9 CKD (chronic kidney disease), stage III N18.30 Hypothyroidism E03.9 CHF (congestive heart failure) I50.9 Anemia D64.9 Calcified granuloma of lung J84.10
== END 2024-01-19 15:30 | disposition home or self-care (01) ==
PROVIDERS: PCP Internal Medicine; Visit Provider Internal Medicine
DX: J44.9 Chronic obstructive pulmonary disease, unspecified (principal); N18.30 Chronic kidney disease, stage 3 unspecified; E03.9 Hypothyroidism, unspecified; I50.9 Heart failure, unspecified; D64.9 Anemia, unspecified; J84.10 Pulmonary fibrosis, unspecified
CPT/HCPCS: 99214

== ENCOUNTER 2024-04-27 13:45 | Outpatient (AMB) | payer MEDICARE, MEDICAID, SELFPAY ==
[2024-04-27 13:53] VITALS: BP 104/60; PULSE 85; O2SAT 92; BMI 24.9
--- NOTE | 2024-04-27 13:53 | A.OFFPC_ITS ---
Vital Signs 04/27/24 13:53 Height 5 ft 7 in Weight 159 lb BMI 24.9 BP 104/60 Blood Pressure Location Lt brachial Position Sitting Pulse 85 Pulse Source Pulse Oximeter Pulse Oximetry (%) 92 Oxygen Delivery Method Nasal Cannula Intake Visit Reasons: 3 months - see comments Intake Note: Pt is here today for 3 months follow up visit. Allergies lisinopril Adverse Reaction (Severe, Verified 04/27/24 13:53) hyperkalemia Medication List - Last Reconciled 04/27/24 by Stormy Topete MD amlodipine 10 mg PO DAILY apixaban (Eliquis) 5 mg PO BID Breo Ellipta 100-25 mcg/dose (fluticasone furoate-vilanterol) 1 inh inhalation DAILY NS carvedilol 25 mg PO BID empagliflozin (Jardiance) 10 mg PO DAILY furosemide 40 mg PO DAILY hydralazine 25 mg PO BID levothyroxine 112 mcg PO DAILY Oxygen Home Use PORTABLE OXYGEN pravastatin 20 mg PO DAILY Tobacco use date assessed: 04/27/24 Dental Screening Dental Screen Date: 09/20/23 HPI 3 months - see comments HPI Details Patient presents for the follow-up of O2 dependent COPD restrictive lung disease , chronic heart failure with preserved ejection fraction hypertension hypothyroidism chronic kidney disease stage 3. Patient reports ambulating less because of bilateral lower extremities weakness and fatigue. She denies PND orthopnea chest pain or pleurisy palpitations PFSH Medical History CHF (congestive heart failure) Impacted cerumen of both ears Annual physical exam Hyperglycemia Chest pain Renal mass Hypothyroidism Pancreatic cyst Lumbar radiculopathy Hyperparathyroidism CKD (chronic kidney disease), stage III COPD (chronic obstructive pulmonary disease) Hyperlipidemia HTN (hypertension) Surgical History H/O colonoscopy No pertinent past surgical history Family History Father Unknown family medical history Mother Unknown family medical history Social History Housing: House Alcohol intake: never Patient Tobacco Use Status: Never used Tobacco e-Cigarette/Vaping Use: Never Used service: No Current occupational status: retired Cognitive needs: No Hearing needs: No Vision needs: No Questionnaire Thrive Questionnaire Date Thrive assessed: 01/12/24 I am a: Patient What is your living situation today?: I have a steady place to live Within the past 12 months, did the food you bought not last and you didn't have the money to get more?: I choose not to answer this question Within the past 12 months, did you worry whether your food would run out before you got money to buy more?: I choose not to answer this question Do you have trouble paying for medicines?: I choose not to answer this question Do you have trouble getting transportation to medical appointments?: I choose not to answer this question Do you have trouble paying your heating and electricity bill?: I choose not to answer this question Do you have trouble taking care of your child, family member or friend?: I choose not to answer this question Do you have trouble with day-to-day activities such as bathing, preparing meals, shopping, managing finances, etc.?: I choose not to answer this question Are you currently unemployed and looking for a job?: No Are you interested in more education?: I choose not to answer this question Please select the resources that you would like help with: None Currently or been in a relationship where the following occur: I choose not to answer THRIVE Score: 0 AUDIT C Alcohol Use Questionnaire (AUDIT-C) 2. How many drinks containing alcohol do you have on a typical day when you are drinking?: 1 or 2 Total Score: 0 EDDIE-7 AMB Questionnaire EDDIE-7 Date EDDIE - 7 assessed: 06/05/22 Source: Developed by Drs. Madhu Monroy, Shyla Hill, Abner Vieyra and colleagues, with an educational ryan from [employer] Review of Systems Const All systems reviewed & are unremarkable except as noted in HPI and below Eyes Reports no additional complaints ENT Reports no additional complaints Card Reports no additional complaints Resp Reports no additional complaints GI Reports no additional complaints Reports no additional complaints Physical exam (Primary Care) Vital Signs: Last Vital Signs Pulse 85 04/27/24 13:53 BP 104/60 04/27/24 13:53 Pulse Ox 92 04/27/24 13:53 Oxygen Delivery Method Nasal Cannula 04/27/24 13:53 BMI result Body Mass Index 24.9 Tobacco/Smoking Status: Tobacco use Status Tobacco use date assessed 04/27/24 04/27/24 13:53 Patient Tobacco Use Status Never used Tobacco 04/27/24 13:53 e-Cigarette/Vaping Use Never Used 04/27/24 13:53 Thrive Assessment: Date of Thrive Assessment Date Thrive assessed 01/12/24 04/27/24 13:53 Currently or been in a relationship where the following occur: I choose not to answer Const General: no acute distress HENMT Head: Yes normal to inspection Throat: Yes posterior oropharynx normal Neck Neck: Yes supple Resp Effort & Inspection: normal respiratory effort Auscultation: diminished lung sounds Cardio Rhythm: abnormal rhythm irregularly irregular Heart sounds: S1 normal heart sound present and S2 normal heart sound present GI Inspection: Yes normal to inspection Palpation (GI): Soft to palpation Percussion: Yes normal to percussion Coding Level of Care Code Est Pt Level 4 (79565) Complex EM visit Add On G2211 Diagnoses Hypothyroidism E03.9 CKD (chronic kidney disease), stage III N18.30 CHF (congestive heart failure) I50.9 COPD (chronic obstructive pulmonary disease) J44.9 Assessment & Plan Assessment & Plan (1) Hypothyroidism: Code(s): E03.9 - Hypothyroidism, unspecified Category: Medical Plan: Continue levothyroxine check TSH (2) CKD (chronic kidney disease), stage III: Comment: renal scarring of left kidney ? old TB, right 2 simple cysts US 3.1 cm and 2.2 cm 03/2019,MR 01/13 - R unchanged 3.2 cm, ill defined renal mass, f/u with urology at [facility] Code(s): N18.30 - Chronic kidney disease, stage 3 unspecified Category: Medical Plan: Follow-up with urology and nephrology (3) CHF (congestive heart failure): Comment: ECHO 10/13 moderate concentric left ventricle hypertrophy, right ventricular volume overload, severe biatrial enlargement, mild to moderate MR, severe pulmonary hypertension. Heart MR LVEF 50%, LV thickness nl, no segmental wall motion abnormalities 02/13 Code(s): I50.9 - Heart failure, unspecified Category: Medical Plan: Continue current medications check blood work today (4) COPD (chronic obstructive pulmonary disease): Comment: O2 dependent Code(s): J44.9 - Chronic obstructive pulmonary disease, unspecified Category: Medical Plan: Continue Breo and supplemental O2 Orders: Orders Comprehensive Met. Panel Today E03.9 - Hypothyroidism, unspecified, I50.9 - Heart failure, unspecified, N18.30 - Chronic kidney disease, stage 3 unspecified TSH reflex Free T4 Today E03.9 - Hypothyroidism, unspecified, I50.9 - Heart failure, unspecified, N18.30 - Chronic kidney disease, stage 3 unspecified B Type Natriuretic Peptide Today E03.9 - Hypothyroidism, unspecified, I50.9 - Heart failure, unspecified, N18.30 - Chronic kidney disease, stage 3 unspecified Comprehensive [place]. Panel Fast 4 Months E03.9 - Hypothyroidism, unspecified, I50.9 - Heart failure, unspecified, N18.30 - Chronic kidney disease, stage 3 unspecified TSH reflex Free T4 4 Months E03.9 - Hypothyroidism, unspecified, I50.9 - Heart failure, unspecified, N18.30 - Chronic kidney disease, stage 3 unspecified Complete Blood Count Auto Diff Today E03.9 - Hypothyroidism, unspecified, I50.9 - Heart failure, unspecified, N18.30 - Chronic kidney disease, stage 3 unspecified Complete Blood Count Auto Diff 4 Months E03.9 - Hypothyroidism, unspecified, I50.9 - Heart failure, unspecified, N18.30 - Chronic kidney disease, stage 3 unspecified B Type Natriuretic Peptide 4 Months E03.9 - Hypothyroidism, unspecified, I50.9 - Heart failure, unspecified, N18.30 - Chronic kidney disease, stage 3 unspecified
== END 2024-04-27 15:03 | disposition home or self-care (01) ==
PROVIDERS: PCP Internal Medicine; Visit Provider Internal Medicine
DX: E03.9 Hypothyroidism, unspecified (principal); N18.30 Chronic kidney disease, stage 3 unspecified; I50.9 Heart failure, unspecified; J44.9 Chronic obstructive pulmonary disease, unspecified

== ENCOUNTER 2024-04-27 13:45 | Outpatient (REF) | payer MEDICARE, MEDICAID, SELFPAY ==
[2024-04-27 16:06] LABS: MANUAL DIFF FLAG NO
[2024-04-27 16:33] LABS: Basophils Percent Auto 0.3 % (0-2); Eosinophils Absolute Auto 0.1 X10*3/uL (0.0-0.4); Eosinophils Percent Auto 1.7 % (0-4); Hematocrit 31.6 % (37.0-47.0); Hemoglobin 9.5 g/dl (12.0-16.0); Imm Gran Abs Auto 0.02 X10*3/uL (0.00-0.03); Imm Gran Pct Auto 0.3 % (0.0-0.4); Lymphocytes Absolute Auto 0.6 X10*3/uL (1.2-4.9); Lymphocytes Percent Auto 9.5 % (20-40); Mean Corpuscular HGB Conc 30.1 g/dl (31.0-35.0); Mean Corpuscular Hemoglobin 23.1 pg (27.0-33.0); Mean Corpuscular Volume 76.9 fL (80.0-98.0); Mean Platelet Volume 9.9 fL (9.4-12.3); Monocytes Absolute Auto 0.5 X10*3/uL (0.1-1.2); Monocytes Percent Auto 7.8 % (2-11); Neutrophils Absolute Auto 5.3 x10*3/uL (2.0-8.3); Neutrophils Percent Auto 80.4 % (45-73); Platelet Count 213 X10*3/uL (160-400); Red Blood Count 4.11 X10*6/uL (4.20-5.50); Red Cell Distribution Width 17.3 % (11.0-16.0); White Blood Count 6.5 X10*3/uL (4.8-10.8)
[2024-04-27 17:00] LABS: B Type Natriuretic Peptide 1076 pg/mL (<100)
[2024-04-27 17:03] LABS: Alanine Aminotransferase 21 U/L (0-31); Albumin Level 4.2 g/dL (3.5-5.0); Alkaline Phosphatase 100 U/L (39-117); Anion Gap 12 (12-20); Aspartate Amino Transferase 25 U/L (5-31); Bilirubin Total 1.4 mg/dL (0.0-1.0); Blood Urea Nitrogen 37 mg/dL (9-16); Calcium 8.8 mg/dL (8.4-10.2); Carbon Dioxide 27 mmol/L (22-29); Chloride 105 mmol/L (96-108); Estimated Glomerular Filt Rate 32; Glucose Random 141 mg/dL (60-115); Potassium 4.3 mmol/L (3.3-5.1); Sodium 140 mmol/L (135-145); Total Protein 7.6 g/dL (6.5-8.0)
[2024-04-27 17:17] LABS: TSH reflex Free T4 2.78 uIU/mL (0.32-4.0)
== END 2024-04-27 13:46 | disposition home or self-care (01) ==
LOC: HO.HMGCLDS 13:45
PROVIDERS: PCP Internal Medicine; Visit Provider Internal Medicine
DX: E03.9 Hypothyroidism, unspecified (principal); N18.30 Chronic kidney disease, stage 3 unspecified; I50.9 Heart failure, unspecified; J44.9 Chronic obstructive pulmonary disease, unspecified; Z99.81 Dependence on supplemental oxygen
CPT/HCPCS: 36415; 80053; 83880; 84443; 85025; 99212

== ENCOUNTER 2024-05-12 09:29 | Outpatient (REF) | payer MEDICARE, MEDICAID, SELFPAY ==
[2024-05-12 13:38] LABS: Anion Gap 15 (12-20); Blood Urea Nitrogen 31 mg/dL (9-16); Calcium 8.7 mg/dL (8.4-10.2); Carbon Dioxide 28 mmol/L (22-29); Chloride 105 mmol/L (96-108); Estimated Glomerular Filt Rate 37; Glucose Random 103 mg/dL (60-115); Iron 22 mcg/dL (30-160); Percent Iron Saturation 5 % (15-50); Potassium 4.1 mmol/L (3.3-5.1); Sodium 144 mmol/L (135-145); Total Iron Binding Capacity 414 mcg/dL (228-428); Unsaturated Iron Binding 392 ug/dL
[2024-05-12 13:42] LABS: Estimated Average Glucose 137 mg/dL; Hemoglobin A1c % 6.4 % (<6.0); Total Hemoglobin (HGBA1C) 2449.7754 umol/L
[2024-05-12 14:07] LABS: Vitamin B12 468 pg/mL (200-900)
== END 2024-05-12 09:30 | disposition home or self-care (01) ==
LOC: HO.HMGCLDS 09:29
PROVIDERS: PCP Internal Medicine; Visit Provider Internal Medicine
DX: D64.9 Anemia, unspecified (principal); I50.9 Heart failure, unspecified; Z13.1 Encounter for screening for diabetes mellitus
CPT/HCPCS: 36415; 80048; 82607; 83036; 83540